=== PATIENT | female | born 1930 | race Caucasian/White ===

== ENCOUNTER 2017-08-13 00:33 | Inpatient (IN) | payer MEDICARE ==
[~2017-08-13] VITALS: Ht 154.9 cm; Wt 90.7 kg
[2017-08-13] VITALS (17 sets, daily range): BP systolic 78–132; BP diastolic 36–96
[~2017-08-13 00:33] MED LIST: ACETAMINOPHEN325 M1 PO; ALDACTONE25 MG PO; ALLOPURINOL100 MG PO; ALPRAZOLAM0.25 MG PO; ALTACE PO; ASPIRIN81 MG PO; ATORVASTATIN CA40 MG PO; BACLOFEN10 MG PO; BENADRYL25 M1 PO; BIOTIN2500 MCG PO; CELEBREX100 MG PO; DIGOXIN125 MCG PO; FLEXERIL10 MG PO; FUROSEMIDE40 MG PO; GABAPENTIN100 MG PO; HYDROCODON-ACE1 EAC9 PO; LABETALOL HCL100 MG PO; LIPITOR80 MG PO; LYRICA75 MG PO; MECLIZINE HCL12.5 MG PO; METOPROLOL TART50 MG PO; MINOCYCLINE HCL50 MG PO; MORPHINE SULFAT15 M1; MS CONTIN15 MG PO; NAMENDA10 MG; NORVASC10 MG PO; NYSTATIN-TRIAMC15 GM; OMEGA 3 1,0001 EACH PO; PRAMIPEXOLE D0.25 MG PO; PRILOSEC20 MG PO; PROAIR HFA INH8.5 GM INH; RAMIPRIL PO; RAMIPRIL10 MG PO; RISPERIDONE0.5 MG PO; ULTRAM 50MG50 MG PO; VITAMIN C500 MG PO; WARFARIN SODIU2.5 MG PO; WARFARIN SODIUM2 MG PO; WARFARIN SODIUM3 MG PO; ZOLOFT100 MG PO; [UNRECOGNIZED DRUG - OTHER]
[2017-08-13] MEDS ORDERED: SODIUM CHLORIDE 0.9% 500ML 500 ML IV STA (00:40)
[2017-08-13] MEDS ORDERED: PANTOPRAZOLE 40 MG 10ML VIAL IV STA (00:40)
[2017-08-13 01:26] LABS: BASOPHILS # (AUTO) 0.1 (0.0-0.1); BASOPHILS % 0.5 % (0.0-1.0); EOSINOPHILS # (AUTO) 0.2 (0.0-0.4); EOSINOPHILS % 1.8 % (0.0-6.0); HEMATOCRIT 31.5 % (34.2-44.1); HEMOGLOBIN 9.8 g/dL (12.0-16.0); LYMPHOCYTES # (AUTO) 1.1 (1.0-3.2); LYMPHOCYTES % 11.3 % (18.0-39.1); MEAN CORPUSCULAR HEMOGLOBIN 29.8 pg (28-32); MEAN CORPUSCULAR HGB CONC 31.1 g/dL (31-35); MEAN CORPUSCULAR VOLUME 95.7 fL (81-99); MONOCYTES # (AUTO) 0.6 (0.2-0.8); MONOCYTES % 6.3 % (4.4-11.3); NEUTROPHILS # (AUTO) 7.6 (2.1-6.9); NEUTROPHILS % 79.6 % (38.7-80.0); PLATELET COUNT 170 x10e3/uL (140-360); RED BLOOD COUNT 3.29 x10e6/uL (3.6-5.1)
[2017-08-13 01:31] LABS: BILIRUBIN,URINE 1+ (NEGATIVE); CLARITY,URINE HAZY (CLEAR); COLOR,URINE YELLOW (YELLOW); KETONES,URINE NEGATIVE (NEGATIVE); LEUKOCYTE ESTERASE ,URINE NEGATIVE (NEGATIVE); NITRITE,URINE NEGATIVE (NEGATIVE); URINE UROBILINOGEN 0.2 mg/dL (0.2 - 1)
[2017-08-13 01:37] LABS: INR 3.24; PROTHROMBIN TIME 34.8 seconds (11.9-14.5)
[2017-08-13 01:38] LABS: PARTIAL THROMBOPLASTIN TIME 65.5 seconds (23.8-35.5); PROTEIN,URINE DIPSTICK 1+ (NEGATIVE)
[2017-08-13 01:45] LABS: ALBUMIN 3.5 g/dL (3.5-5.0); ANION GAP 15.6 mmol/L (8-16); CALCIUM 9.1 mg/dL (8.4-10.2); CREATININE, SERUM 1.91 mg/dL (0.57-1.11); POTASSIUM 4.6 mmol/L (3.5-5.1)
[2017-08-13 01:55] LABS: CREATINE KINASE MB 1.2 ng/mL (0.00-5.00)
[2017-08-13 01:59] LABS: BACTERIA,URINE RARE /HPF; EPITHELIAL CELLS,URINE FEW /LPF; MUCUS,URINE MANY (RARE)
[2017-08-13] MEDS ORDERED: SODIUM CHLORIDE 0.9% 1000ML 1,000 ML IV SCH (02:00)
--- NOTE | 2017-08-13 02:17 | Diagnostic Imaging Report ---
SHOULDER LEFT COMPLETE HISTORY: Pain COMPARISON: None FINDINGS: Bones: No displaced fracture. Osseous alignment is within normal limits. Joints: Moderate degenerative changes of the left acromioclavicular and glenohumeral joints Soft tissues: Left-sided pacemaker IMPRESSION: No acute radiographic abnormality. Signed by: Dr. Gregory Man M.D. on 08/13/2017 2:13 AM
--- NOTE | 2017-08-13 02:25 | Diagnostic Imaging Report ---
History: Multiple falls Comparison studies:CT head and C spine 01/01/17 Technique: Axial images were obtained from the brain, face and cervical spine. Coronal and sagittal reconstructions obtained from the axial data. Intravenous contrast: None Findings: Head CT: Scalp/skull: No abnormalities. Extra-axial spaces: No masses. No fluid collections. Brain sulci: Mildly prominent. Ventricles: Mild compensatory dilatation. No hydrocephalus. Parenchyma: Scattered hypodensities in the supratentorial white matter are small vessel ischemic changes. No masses, hemorrhage, acute or chronic cortical vascular insults. Sellar/suprasellar region: No abnormalities. Craniocervical junction: Patent foramen magnum. No Chiari one malformation. Incidental findings: Atherosclerotic calcifications in the carotid siphons . Maxillofacial CT: Soft tissues: No abnormalities.. Bones: No acute fractures or bony abnormalities. Chronic depression of the left lamina papyracea . Orbits: No abnormalities. Paranasal sinuses: Clear. Cervical spine CT: Fractures: None. Soft tissues: No gross abnormalities. Atlantoaxial articulation: Intact. Degenerative changes Alignment: Normal lordosis. No scoliosis. Cervicomedullary junction: No abnormalities. The foramen magnum is patent. Vertebrae: No infection or neoplasm. Degenerative changes: Grossly unchanged multilevel degenerative changes. Incidental findings: Atherosclerotic calcifications of the carotid bulbs with retropharyngeal course of the IAC. Impression: Head CT: 1. No acute intracranial abnormality. Facial CT: 1. No acute facial abnormality. Cervical spine CT: 1. No acute cervical abnormalities. 2. Cannot exclude ligament, spinal cord and or vascular abnormalities on the basis of this examination. Signed by: DR Erik Velásquez M.D. on 08/13/2017 2:21 AM
[2017-08-13] MEDS ORDERED: SODIUM CHLORIDE 0.9% 250ML 250 ML IV ONE ×3 (03:45→16:00)
[2017-08-13] MEDS ORDERED: PHYTONADIONE 10 MG/ML AMP SC ONE (03:45)
--- NOTE | 2017-08-13 03:48 | Diagnostic Imaging Report ---
EXAM: CT Abdomen and Pelvis WITHOUT contrast INDICATION: Rectal bleeding COMPARISON: None. TECHNIQUE: Abdomen and pelvis were scanned utilizing a multidetector helical scanner from the lung base to the pubic symphysis without administration of IV contrast. Absence of intravenous contrast decreases sensitivity for detection of focal lesions and vascular pathology. Coronal and sagittal reformations were obtained. Routine protocol was performed. IV CONTRAST: None. ORAL CONTRAST: Water RADIATION DOSE: Total DLP: 722.49 mGy*cm Estimated effective dose: (DLP x 0.015 x size factor) mSv COMPLICATIONS: None FINDINGS: LINES and TUBES: ICD device is visualized in the left upper chest with distal leads within the right atrium, right ventricle and coronary sinus.. LOWER THORAX: Coronary artery disease with evidence of mitral valve annulus calcification HEPATOBILIARY: No focal hepatic lesions. No biliary ductal dilation. GALLBLADDER: No radio-opaque stones or sludge. No wall thickening. SPLEEN: No splenomegaly. PANCREAS: No focal masses or ductal dilatation. ADRENALS: No adrenal nodules KIDNEYS/URETERS: No hydronephrosis. Atrophic kidneys with suspected chronic medical renal disease. There is a 2.8 cm simple cyst in the upper pole of the right kidney. No stones. GI TRACT: Circumferential thickening of the rectum compatible with proctitis. There are diverticula within the colon without evidence of diverticulitis. Appendix is not clearly identified. There is however no fat stranding or adenopathy in the right lower quadrant to suggest appendicitis. PELVIC ORGANS/BLADDER: Peck catheter decompresses the urinary bladder. LYMPH NODES: No lymphadenopathy. VESSELS: There is severe atherosclerotic disease in the aorta and major arterial branches. PERITONEUM / RETROPERITONEUM: No free air or fluid. BONES: There are degenerative changes in the lumbar spine. SOFT TISSUES: Unremarkable. IMPRESSION: 1. No evidence of acute intra-abdominal or pelvic abnormality. 2. Diffuse atherosclerotic disease of the thoracoabdominal aorta and branches. 3. Diverticulosis without evidence of diverticulitis. 4. Thickening of the rectum compatible with proctitis Signed by: Dr. Gregory Man M.D. on 08/13/2017 3:44 AM
[2017-08-13] MEDS ORDERED: SODIUM CHLORIDE FLUSH 10 ML SYR INJ PRN (04:15)
[2017-08-13] MEDS ORDERED: PIPER-TAZ 3.375 GM 50 ML IV ONE (04:30)
[2017-08-13] MEDS: D5.45%NS/KCL 20MEQ 1,000 ML IV SCH ×3 (08:06→20:45)
[2017-08-13] MEDS ORDERED: ONDANSETRON HCL INJ 2 MG/ML VIAL IV PRN ×2 (10:45→11:15)
[2017-08-13] MEDS ORDERED: HYDROMORPHONE 2MG/ML INJ IV PRN (10:45)
[2017-08-13] MEDS: HYDROMORPHONE 2MG/ML INJ IV PRN ×2 (11:48→15:48)
[2017-08-13 14:45] LABS: HEMATOCRIT 23.3 % (34.2-44.1)
[2017-08-13 14:47] LABS: HEMOGLOBIN 7.6 g/dL (12.0-16.0)
--- NOTE | 2017-08-13 15:44 | Consultation ---
DATE OF CONSULTATION: August 13, 2017 CARDIOLOGY CONSULTATION REQUESTING PHYSICIAN: Dr. Marisela Trujillo. REASON FOR CONSULTATION: Atrial fibrillation and coronary artery disease. HISTORY OF PRESENT ILLNESS: This is an 87-year-old woman with a history of hypertension, dyslipidemia, coronary artery disease, chronic systolic heart failure status post AICD, chronic kidney disease, atrial fibrillation and dementia, who presented to the ER with complaints of bright red blood per rectum. The patient's daughter who is at bedside indicates the patient has been having diarrhea and weakness for the last week. The patient then called her daughter yesterday and reported bleeding from the rectum. She was, therefore, brought to the ER for further evaluation. In addition, the patient's daughter indicates the patient has been falling frequently recently. The patient otherwise denies chest pain, shortness of breath, palpitations, edema or orthopnea. REVIEW OF SYSTEMS: Negative except as per HPI. PAST MEDICAL HISTORY 1. Chronic systolic heart failure status post AICD. 2. Coronary artery disease. 3. Atrial fibrillation on anticoagulation. 4. Hypertension. 5. Hyperlipidemia. 6. Chronic kidney disease. 7. Dementia. 8. Depression. 9. History of frequent falls. PAST SURGICAL HISTORY 1. Cholecystectomy. 2. Hysterectomy. 3. Knee arthroscopy. SOCIAL HISTORY: Former tobacco use. Currently lives in a [facility]. FAMILY HISTORY: Noncontributory. ALLERGIES: PLEASE SEE EMR. MEDICATIONS: Please see medication reconciliation. PHYSICAL EXAMINATION VITAL SIGNS: Temperature 98.1 degrees, pulse 98, respiratory rate 18, blood pressure 98/69, oxygen saturation 99%. GENERAL: Elderly woman, well developed, well nourished, obese. No acute distress. HEENT: Normocephalic. Pupils equal. She has scattered ecchymoses noted as well as subconjunctival hemorrhage on the left. NECK: Supple. No thyromegaly or cervical lymphadenopathy, no carotid bruits. LUNGS: Clear to auscultation bilaterally. No wheezes or crackles. CARDIOVASCULAR: Normal rate, regular rhythm. No murmur. Normal S1 and S2. ABDOMEN: Soft, nontender. EXTREMITIES: No edema. NEURO: Nonfocal exam. SKIN: Scattered ecchymoses are noted. LABS: WBC 9.5, hemoglobin 9.8, hematocrit 31.5, platelets 170. Sodium 132, potassium 4.6, chloride 102, CO2 19, BUN 60, creatinine 1.91. BNP 799. Troponin 0.052. CT abdomen and pelvis: No evidence of acute intra-abdominal or pelvic abnormality. Diffuse atherosclerotic disease of the thoracoabdominal aorta and branches. Diverticulosis without evidence of diverticulitis. Thickening of rectum compatible with proctitis. Face CT: No acute cervical abnormalities. No acute intracranial abnormality. No acute facial abnormality. Cannot exclude intermediate spinal cord and/or vascular abnormalities on the basis of this examination. Shoulder x-ray: No acute radiographic abnormality. EKG: Atrial fibrillation with rapid ventricular response. Inferior infarct, age undetermined. Possible anterior infarct, age undetermined. IMPRESSION 1. Gastrointestinal bleeding. 2. Acute kidney injury on chronic kidney disease. 3. Supratherapeutic international normalized ratio. 4. Frequent falls. 5. Atrial fibrillation. 6. Coronary artery disease. 7. Chronic systolic heart failure status post automatic implantable cardioverter-defibrillator. 8. Dyslipidemia. 9. Hypertension. RECOMMENDATIONS: Given frequent falls and GI bleeding, stop anticoagulation. Continue current cardiac medications otherwise. Agree with trial of fluids given acute kidney injury. Will have to monitor volume status closely given her chronic systolic heart failure. Will ask for device interrogation to confirm no arrhythmias, explain her symptoms. Thank you for this consult. We will continue to follow. Job#: [id number] EHSAN
[2017-08-13 16:16] LABS: INR 1.53; PROTHROMBIN TIME 19.2 seconds (11.9-14.5)
[2017-08-13 16:17] LABS: PARTIAL THROMBOPLASTIN TIME 38.8 seconds (23.8-35.5)
--- NOTE | 2017-08-13 16:37 | Diagnostic Imaging Report ---
Tagged-RBC GI Bleed Study Clinical information: 87-year-old female with rectal bleeding; bright red bloody stool today. Discussion: The patient's own red blood cells were labeled with 26 mCi of technetium-99m pertechnetate using the in vitro method (UltraTag). Dynamic images of the abdomen were obtained through 60 minutes. Distribution of tracer activity appears physiologic throughout the abdomen. No abnormal accumulation of tracer is seen within the gastrointestinal lumen. Impression: No scan evidence of active gastrointestinal bleeding at this time. Signed by: Dr. Denice Alfaro M.D. on 08/13/2017 4:33 PM
[2017-08-13] MEDS ORDERED: PEG (High)/E-LYTE SOLN 4,000 ML BTL PO ONE (20:00)
[2017-08-13 20:57] LABS: HEMATOCRIT 21.2 % (34.2-44.1); HEMOGLOBIN 6.9 g/dL (12.0-16.0)
[2017-08-13] MEDS ORDERED: SODIUM CHLORIDE 0.9% 250ML 250 ML ONE (21:35)
[2017-08-14] VITALS (59 sets, daily range): BP systolic 71–144; BP diastolic 38–124
[2017-08-14] MEDS ORDERED: SODIUM CHLORIDE 0.9% 250ML 250 ML IV ONE (01:15)
[2017-08-14] MEDS: D5.45%NS/KCL 20MEQ 1,000 ML IV SCH ×4 (04:13→22:21)
[2017-08-14 07:53] LABS: BASOPHILS % 0.2 % (0.0-1.0); EOSINOPHILS # (AUTO) 0.1 (0.0-0.4); EOSINOPHILS % 0.7 % (0.0-6.0); HEMATOCRIT 24.8 % (34.2-44.1); HEMOGLOBIN 8.3 g/dL (12.0-16.0); LYMPHOCYTES # (AUTO) 0.7 (1.0-3.2); LYMPHOCYTES % 8.3 % (18.0-39.1); MEAN CORPUSCULAR HEMOGLOBIN 30.4 pg (28-32); MEAN CORPUSCULAR HGB CONC 33.5 g/dL (31-35); MEAN CORPUSCULAR VOLUME 90.8 fL (81-99); MONOCYTES # (AUTO) 0.7 (0.2-0.8); MONOCYTES % 8.3 % (4.4-11.3); NEUTROPHILS % 81.6 % (38.7-80.0); PLATELET COUNT 150 x10e3/uL (140-360); RED BLOOD COUNT 2.73 x10e6/uL (3.6-5.1); RED CELL DISTRIBUTION WIDTH 15.2 % (11.7-14.4)
[2017-08-14 08:02] LABS: INR 1.22
[2017-08-14 08:03] LABS: PARTIAL THROMBOPLASTIN TIME 32.9 seconds (23.8-35.5)
[2017-08-14] MEDS: PANTOPRAZOLE 40 MG 10ML VIAL IV SCH (09:56)
[2017-08-14] MEDS ORDERED: SODIUM CHLORIDE 0.9% 250ML 500 ML ONE (10:21)
--- NOTE | 2017-08-14 12:41 | Progress Note ---
DATE: August 14, 2017 CARDIOLOGY PROGRESS NOTE SUBJECTIVE: Patient denies chest pain or shortness of breath. She is scheduled for a colonoscopy today. OBJECTIVE VITAL SIGNS: Temperature 98.9 degrees, pulse 114, respiratory rate 18, blood pressure 122/62, oxygen saturation 100% on 2 liters nasal cannula. GENERAL: Elderly woman, obese, no acute distress. LUNGS: Clear to auscultation bilaterally. No wheezes or crackles. CARDIOVASCULAR: Normal rate, regular rhythm. No murmur. Normal S1 and S2. ABDOMEN: Soft, nontender. EXTREMITIES: No edema. SKIN: Scattered ecchymoses are noted with subconjunctival hemorrhage on the left. CARDIAC MEDICATIONS: None. LABS: WBC 8.59, hemoglobin 8.3, hematocrit 24.8, platelets 150. Sodium 132, potassium 4.6, chloride 102, CO2 19, BUN 60, creatinine 1.91. TELEMETRY: AFib with RVR. IMPRESSION 1. Gastrointestinal bleeding. 2. Acute anemia secondary to above. 3. Acute kidney injury on chronic kidney disease. 4. Supratherapeutic international normalized ratio. 5. Frequent falls. 6. Atrial fibrillation. 7. Coronary artery disease. 8. Chronic systolic heart failure status post automatic implantable cardioverter-defibrillator. 9. Dyslipidemia. 10. Hypertension. RECOMMENDATIONS: Given frequent falls and GI bleeding, stop anticoagulation. This was discussed with the patient and family, who are in agreement. Resume metoprolol given patient's tachycardia. Monitor volume status closely given her chronic systolic heart failure. Interrogation revealed mostly atrial fibrillation with rapid ventricular response, a few beats of nonsustained VT, otherwise normal function. Thank you for this consult. We will continue to follow. Job#: [id number] EV
[2017-08-14] MEDS ORDERED: LIDOCAINE HCL 2% LOCAL INJ 5 ML SDV VIAL INJ ONE (17:09)
[2017-08-14] MEDS ORDERED: PROPOFOL IV EMULSION 10 MG/ML 50 ML VIAL ONE (17:09)
[2017-08-14 18:54] LABS: HEMATOCRIT 20.4 % (34.2-44.1); HEMOGLOBIN 6.9 g/dL (12.0-16.0)
--- NOTE | 2017-08-14 19:58 | Operative Report ---
DATE OF PROCEDURE: August 14, 2017 REFERRING PHYSICIAN: Dr. Nolan Hwang PROCEDURES PERFORMED 1. Esophagogastroduodenoscopy with biopsies. 2. Colonoscopy with polypectomy. 3. Fulguration with size 10-English gold probe. 4. Hemoclipping. INDICATIONS FOR EGD: Anemia. INDICATIONS FOR COLONOSCOPY: Rectal bleeding. MEDICATION: Patient was done under MAC. Please see anesthesiologist's note. PROCEDURE: With the patient in the left lateral decubitus position, the flexible fiberoptic Olympus gastroscope was introduced into the esophagus under direct visualization without any difficulty. The scope was then advanced with ease under direct visualization into the esophagus, which appeared to be within normal limits. The scope was then advanced with ease into the stomach traversing a small hiatal hernia. Mucosa overlying the antrum and the body revealed some diffuse erythema and low-grade edema, and biopsies were obtained and sent to stain for H. pylori. The pylorus appeared to be of normal contour and shape. It was intubated with ease. The scope was advanced all the way to the 2nd portion of the duodenum. The scope was then withdrawn slowly. Mucosa overlying the proximal 2nd portion and the duodenal bulb appeared to be within normal limits. The scope was then withdrawn back into the stomach and retroflexed. Mucosa overlying the fundus appeared to be within normal limits. The cardia also appeared to be within normal limits. The scope was then straightened out. The stomach was decompressed. The scope was subsequently withdrawn. Patient tolerated the procedure well. IMPRESSION 1. Normal esophagus. 2. Small sliding hiatal hernia. 3. Gastritis, biopsied. Biopsies sent to stain for Helicobacter pylori. PLAN: Follow up histology. Initiate Protonix 40 mg 1 p.o. q.a.m. a.c. Patient was then turned around. After adequate lubrication of the anal canal, a flexible fiberoptic Olympus colonoscope was inserted into the rectum with ease and advanced all the way to the cecum. It was then withdrawn slowly. Mucosa overlying the cecum, ascending colon and transverse colon grossly were unremarkable. Some diverticular disease was noted in the descending colon and sigmoid colon. One polyp was snared from the sigmoid colon. A blood clot was noted in a diverticulum in the sigmoid colon. It could not be dislodge with the water jet. It was then fulgurated with a size 10-English gold probe and the diverticulum was hemoclipped. The rest of the descending and sigmoid grossly appeared to be within normal limits. The scope was retroflexed into the distal rectum and moderate size internal hemorrhoids were noted without active bleeding. The scope was then straightened out and it was subsequently withdrawn. Patient tolerated the procedure well. IMPRESSION 1. Diverticulosis. 2. Blood clot in a sigmoid diverticulum. Could not be dislodged with water jet. It was fulgurated with a size 10-English gold probe and the diverticulum was hemoclipped. 3. Moderate size internal hemorrhoids without active bleeding. PLAN: Follow up histology. Follow H and H. Initiate full liquid diet. A followup colonoscopy unless the patient rebleeds it not indicated. Job#: [id number] RI cc:RENEA HWANG DO
[2017-08-15] VITALS (92 sets, daily range): BP systolic 90–203; BP diastolic 48–165
[2017-08-15 00:09] LABS: HEMATOCRIT 19.1 % (34.2-44.1); HEMOGLOBIN 6.3 g/dL (12.0-16.0)
[2017-08-15] MEDS ORDERED: SODIUM CHLORIDE 0.9% 250ML 250 ML ONE (00:49)
[2017-08-15] MEDS: HYDROMORPHONE 2MG/ML INJ IV PRN ×2 (03:38→22:04)
[2017-08-15] MEDS: METOPROLOL TARTRATE INJ 1 MG/ML VIAL IV PRN ×3 (04:08→22:04)
[2017-08-15] MEDS: PANTOPRAZOLE 40 MG 10ML VIAL IV SCH (09:00)
[2017-08-15 09:02] LABS: HEMATOCRIT 26.5 % (34.2-44.1); HEMOGLOBIN 8.6 g/dL (12.0-16.0)
[2017-08-15] MEDS: D5.45%NS/KCL 20MEQ 1,000 ML IV SCH (12:30)
--- NOTE | 2017-08-15 15:18 | Progress Note ---
DATE: August 15, 2017 CARDIOLOGY PROGRESS NOTE SUBJECTIVE: Patient denies chest pain or shortness of breath. She underwent EGD and colonoscopy yesterday and was found to have a normal esophagus, a small sliding hiatal hernia, gastritis and diverticulosis. There was a blood clot found in the sigmoid diverticulum, for which she had fulguration and hemoclipping of the diverticulum. In addition, moderate-sized internal hemorrhoids without active bleeding were noted. OBJECTIVE VITAL SIGNS: Temperature 99.6 degrees, pulse 93, respiratory rate 18, blood pressure 119/75, oxygen saturation 98% on 3 liters nasal cannula. GENERAL: Elderly woman in no acute distress. LUNGS: Clear to auscultation bilaterally. No wheezes or crackles. CARDIOVASCULAR: Irregularly irregular, normal rate. No murmur. Normal S1 and S2. ABDOMEN: Soft, nontender. EXTREMITIES: No edema. SKIN: Scattered ecchymoses noted with subconjunctival hemorrhage on the left. CARDIAC MEDICATIONS: Metoprolol tartrate 5 mg IV q.6 h. p.r.n. LABS: Hemoglobin 8.6, hematocrit 26.5. TELEMETRY: Atrial fibrillation, rate controlled. IMPRESSION 1. Gastrointestinal bleeding secondary to diverticulosis. 2. Acute anemia secondary to above. 3. Acute kidney injury on chronic kidney disease. 4. Supratherapeutic international normalized ratio. 5. Frequent falls. 6. Atrial fibrillation. 7. Coronary artery disease. 8. Chronic systolic heart failure status post automatic implantable cardioverter-defibrillator. 9. Dyslipidemia. 10. Hypertension. RECOMMENDATIONS: Given frequent falls and GI bleeding, anticoagulation has been stopped. This was discussed with the patient and family, who are in agreement. Resume metoprolol now that patient has finished her procedure. Monitor volume status closely given chronic systolic heart failure. Continue patient on telemetry. Thank you for this consult. We will continue to follow. Job#: [id number] EV
[2017-08-15 15:46] LABS: HEMATOCRIT 27.3 % (34.2-44.1)
[2017-08-15] MEDS ORDERED: ALBUTEROL SULF 0.083% NEB SOLN 3 ML NEB ONE (16:58)
[2017-08-15] MEDS ORDERED: FUROSEMIDE INJ 10 MG/ML 4 ML VIAL ONE (16:59)
[2017-08-15] MEDS ORDERED: LABETALOL HCL IV 5 MG/ML 20ML MDV IV STA (17:20)
[2017-08-15] MEDS ORDERED: LABETALOL HCL 5MG/ML MDV 20 ML ONE (17:22)
[2017-08-15] MEDS ORDERED: ALBUTEROL SULF 0.083% NEB SOLN 3 ML NEB NEB SCH (19:00)
[2017-08-15] MEDS: IPRATROPIUM BROMIDE 0.02% 2.5 ML NEB NEB PRN (20:12)
[2017-08-15] MEDS: LEVALBUTEROL HCL SOLN NEBU 0.63 MG/3 ML NEB INH PRN (20:12)
[2017-08-16] VITALS (73 sets, daily range): BP systolic 109–174; BP diastolic 55–139
[2017-08-16 00:21] LABS: HEMATOCRIT 25.4 % (34.2-44.1); HEMOGLOBIN 8.2 g/dL (12.0-16.0)
[2017-08-16 05:35] LABS: BASOPHILS % 0.3 % (0.0-1.0); EOSINOPHILS # (AUTO) 0.1 (0.0-0.4); EOSINOPHILS % 0.6 % (0.0-6.0); HEMATOCRIT 26.9 % (34.2-44.1); HEMOGLOBIN 8.6 g/dL (12.0-16.0); LYMPHOCYTES # (AUTO) 0.8 (1.0-3.2); MEAN CORPUSCULAR HEMOGLOBIN 28.7 pg (28-32); MEAN CORPUSCULAR VOLUME 89.7 fL (81-99); MONOCYTES # (AUTO) 0.7 (0.2-0.8); MONOCYTES % 5.6 % (4.4-11.3); NEUTROPHILS % 85.6 % (38.7-80.0); PLATELET COUNT 140 x10e3/uL (140-360); RED CELL DISTRIBUTION WIDTH 19.5 % (11.7-14.4)
[2017-08-16 05:59] LABS: ANION GAP 11.8 mmol/L (8-16); CALCIUM 8.8 mg/dL (8.4-10.2); CREATININE, SERUM 1.13 mg/dL (0.57-1.11); POTASSIUM 3.8 mmol/L (3.5-5.1)
[2017-08-16] MEDS: HYDROMORPHONE 2MG/ML INJ IV PRN ×3 (06:33→19:10)
[2017-08-16] MEDS: METOPROLOL TARTRATE INJ 1 MG/ML VIAL IV PRN ×2 (06:34→10:05)
--- NOTE | 2017-08-16 06:50 | Diagnostic Imaging Report ---
EXAM: CHEST SINGLE (PORTABLE), AP Portable DATE: 08/16/2017 5:00 AM Time stamp on exam: 0618 hours INDICATION: COMPARISON: 09/23/2016 FINDINGS: LINES/TUBES: Stable position left approach single lead cardiac device. Right IJ central line catheter is now present in good position with tip overlying the SVC LUNGS: Central vascular congestion and interlobular septi thickening PLEURA: No effusions or pneumothorax. HEART AND MEDIASTINUM: Stable appearance of cardiomediastinal silhouette with mild enlargement. BONES AND SOFT TISSUES: No acute findings. IMPRESSION: No significant interval change. Mild edema secondary to cardiomegaly Signed by: Dr. Gregory Man M.D. on 08/16/2017 6:47 AM
[2017-08-16] MEDS: IPRATROPIUM BROMIDE 0.02% 2.5 ML NEB NEB PRN (07:15)
[2017-08-16] MEDS: LEVALBUTEROL HCL SOLN NEBU 0.63 MG/3 ML NEB INH PRN (07:15)
[2017-08-16] MEDS: PANTOPRAZOLE 40 MG 10ML VIAL IV SCH (09:00)
[2017-08-16] MEDS ORDERED: SPIRONOLACTONE 25 MG TAB ONE (11:39)
[2017-08-16] MEDS ORDERED: FUROSEMIDE 40 MG TAB ONE (11:40)
[2017-08-16] MEDS ORDERED: DIGOXIN INJ 0.25 MG/ML 2 ML AMP ONE (11:40)
[2017-08-16] MEDS ORDERED: METOPROLOL TARTRATE 50 MG TAB ONE (11:45)
[2017-08-16] MEDS: CEFEPIME HCL 1 GM VIAL IV SCH ×2 (12:00→23:41)
[2017-08-16] MEDS ORDERED: FUROSEMIDE INJ 10 MG/ML 4 ML VIAL IV ONE (12:00)
[2017-08-16 12:20] LABS: HEMOGLOBIN 8.6 g/dL (12.0-16.0)
[2017-08-16] MEDS ORDERED: SPIRONOLACTONE 25 MG TAB PO ONE (12:30)
--- NOTE | 2017-08-16 12:45 | Progress Note ---
DATE: August 16, 2017 CARDIOLOGY PROGRESS NOTE: SUBJECTIVE: Ms. Salinas feels better. She remains a little disoriented. OBJECTIVE VITAL SIGNS: Afebrile. Heart rate 136. Blood pressure 150/139. CARDIOVASCULAR: Irregularly irregular rhythm. Systolic murmur. LUNGS: Fine crackles bilaterally both lung bases. O2 sat is 96%. ABDOMEN: Is mildly distended and diffusely tender. Bowel sounds are present. Hemoglobin is 8.6. Serum creatinine is 1.13. CARDIOVASCULAR MEDICATIONS: Were reviewed. ASSESSMENT: 1. Atrial fibrillation with rapid ventricular response with recent major gastrointestinal bleeding. 2. Acute on chronic systolic heart failure. PLAN: All anticoagulation has been held. I will restart her oral medications to better control her AFib rate and rhythm. At this point, she is not a candidate for anticoagulation. I discussed the concept of left atrial appendage occlusion with the family. They will review data on the same. She is stable for transfer out of ICU once heart rate is better controlled. Job#: [id number] EHSAN
[2017-08-16] MEDS ORDERED: METOPROLOL TARTRATE 50 MG TAB PO ONE (13:00)
[2017-08-16] MEDS ORDERED: FUROSEMIDE 40 MG TAB PO ONE (13:00)
[2017-08-16] MEDS ORDERED: DIGOXIN INJ 0.25 MG/ML 2 ML AMP IV ONE (13:00)
[2017-08-16] MEDS: VANCOMYCIN 1GM/NS 250 ML 250 ML IV SCH (13:15)
[2017-08-16] MEDS: METOPROLOL TARTRATE 50 MG TAB PO SCH (18:10)
[2017-08-16] MEDS: PRAMIPEXOLE DIHYDROCHLORIDE 0.25 MG TAB PO SCH ×2 (18:10→21:20)
[2017-08-16] MEDS ORDERED: PRAMIPEXOLE DIHYDROCHLORIDE 0.25 MG TAB ONE (18:15)
[2017-08-16 18:51] LABS: HEMOGLOBIN 8.4 g/dL (12.0-16.0)
[2017-08-17] VITALS (29 sets, daily range): BP systolic 126–177; BP diastolic 68–149
[2017-08-17] MEDS: HYDROMORPHONE 2MG/ML INJ IV PRN ×2 (00:43→19:32)
[2017-08-17 05:40] LABS: BASOPHILS % 0.3 % (0.0-1.0); EOSINOPHILS # (AUTO) 0.3 (0.0-0.4); EOSINOPHILS % 2.8 % (0.0-6.0); LYMPHOCYTES # (AUTO) 0.6 (1.0-3.2); LYMPHOCYTES % 5.7 % (18.0-39.1); MEAN CORPUSCULAR HEMOGLOBIN 29.2 pg (28-32); MEAN CORPUSCULAR VOLUME 91.2 fL (81-99); MONOCYTES # (AUTO) 0.7 (0.2-0.8); MONOCYTES % 5.9 % (4.4-11.3); NEUTROPHILS # (AUTO) 9.4 (2.1-6.9); NEUTROPHILS % 83.3 % (38.7-80.0); PLATELET COUNT 130 x10e3/uL (140-360); RED BLOOD COUNT 2.74 x10e6/uL (3.6-5.1); RED CELL DISTRIBUTION WIDTH 18.6 % (11.7-14.4)
[2017-08-17 05:51] LABS: ALBUMIN/GLOBULIN RATIO 1.1 (0.8-2.0); ANION GAP 10.4 mmol/L (8-16); CALCIUM 8.6 mg/dL (8.4-10.2); CREATININE, SERUM 1.15 mg/dL (0.57-1.11); POTASSIUM 3.4 mmol/L (3.5-5.1)
[2017-08-17] MEDS: LEVALBUTEROL HCL SOLN NEBU 0.63 MG/3 ML NEB INH PRN ×3 (07:57→17:35)
[2017-08-17] MEDS: IPRATROPIUM BROMIDE 0.02% 2.5 ML NEB NEB PRN ×3 (07:57→17:35)
[2017-08-17 08:39] LABS: PROTHROMBIN TIME 13.7 seconds (11.9-14.5)
[2017-08-17] MEDS: FUROSEMIDE 40 MG TAB PO SCH (08:50)
[2017-08-17] MEDS: DIGOXIN 0.125 MG TAB PO SCH (08:50)
[2017-08-17] MEDS: SPIRONOLACTONE 25 MG TAB PO SCH (08:50)
[2017-08-17] MEDS: CHLORDIAZEPOXIDE/CLIDINIUM 1 CAP PO SCH ×3 (08:50→16:27)
[2017-08-17] MEDS: METOPROLOL TARTRATE 50 MG TAB PO SCH ×2 (08:51→17:00)
[2017-08-17] MEDS: PRAMIPEXOLE DIHYDROCHLORIDE 0.25 MG TAB PO SCH ×3 (08:51→21:05)
[2017-08-17] MEDS: PANTOPRAZOLE 40 MG 10ML VIAL IV SCH ×2 (09:00→20:30)
[2017-08-17] MEDS: SENNA-S TABLET PO SCH ×2 (11:00→17:00)
[2017-08-17] MEDS ORDERED: BISACODYL 10 MG SUPP PR ONE (11:30)
[2017-08-17] MEDS ORDERED: POTASSIUM CHLORIDE 20 MEQ TAB CR PO ONE (11:30)
[2017-08-17] MEDS ORDERED: ACETAMINOPHEN 325 MG TAB ONE (11:46)
[2017-08-17] MEDS: ACETAMINOPHEN 325 MG TAB PO PRN (11:51)
[2017-08-17] MEDS: CEFEPIME HCL 1 GM VIAL IV SCH (11:51)
[2017-08-17] MEDS: VANCOMYCIN 1GM/NS 250 ML 250 ML IV SCH (13:00)
--- NOTE | 2017-08-17 15:48 | Diagnostic Imaging Report ---
EXAM: CT Abdomen and Pelvis WITHOUT contrast INDICATION: \S\ACUTE ABDOMEN \S\[id number] \S\1345 \S\Y COMPARISON: CT dated 08/13/2019 TECHNIQUE: Abdomen and pelvis were scanned utilizing a multidetector helical scanner from the lung base to the pubic symphysis without administration of IV contrast. Absence of intravenous contrast decreases sensitivity for detection of focal lesions and vascular pathology. Coronal and sagittal reformations were obtained. Routine protocol was performed. IV CONTRAST: None ORAL CONTRAST: Water COMPLICATIONS: None RADIATION DOSE: Total DLP: 763.13 mGy*cm Estimated effective dose: (DLP x 0.015 x size factor) mSv CTDIvol has been reviewed. It is below the limits set by the Radiation Protocol Committee (RPC). FINDINGS: LINES and TUBES: Distal lead of cardiac pacemaker is visualized. LOWER THORAX: Cardiomegaly. Severe atherosclerotic calcification of coronary arteries and mitral valve. Small bilateral pleural effusions. Perihilar opacities. HEPATOBILIARY: Unenhanced liver is unremarkable. No biliary ductal dilation. GALLBLADDER: Not visualized. SPLEEN: No splenomegaly. PANCREAS: Atrophic. No focal masses or ductal dilatation. ADRENALS: No adrenal nodules. Mild thickening, likely hyperplasia. KIDNEYS/URETERS: No hydronephrosis. Unchanged right superior pole cyst. There is also a smaller left superior pole cyst. No stones. GI TRACT: No abnormal distention, wall thickening, or evidence of bowel obstruction. Colonic diverticulosis without evidence of diverticulitis. Appendix is not visualized. PELVIC ORGANS/BLADDER: Bladder is compressed by a Peck catheter in place, containing a pocket of air. LYMPH NODES: No lymphadenopathy. VESSELS: Tortuous abdominal aorta with moderate to severe atherosclerotic disease. The proximal/suprarenal abdominal aorta is ectatic up to 2.9 cm. PERITONEUM / RETROPERITONEUM: No free air or fluid. BONES: Severe degenerative changes of spine. There is lower lumbar spine facet arthropathy, especially at L5-S1. Grade 1 anterolisthesis of L5 in relation to S1. SOFT TISSUES: Unremarkable. IMPRESSION: Limited study without intravenous contrast. No definite evidence of acute inflammatory process in the abdomen/pelvis. Partially imaged cardiomegaly, severe atherosclerotic calcification of coronary arteries, and small bilateral pleural effusions. There are also bilateral perihilar opacities. Underlying pneumonia cannot be excluded. Colonic diverticulosis without evidence of diverticulitis. Signed by: Dr. Norris Dietz MD on 08/17/2017 3:44 PM
--- NOTE | 2017-08-17 17:25 | Progress Note ---
DATE: August 17, 2017 CARDIOLOGY PROGRESS NOTE: SUBJECTIVE: Ms. Salinas has considerable abdominal pain. OBJECTIVE VITAL SIGNS: She has a temperature of 102 degrees. Heart rate is 87. Blood pressure 154/79. O2 sat is 91% on 3 liters nasal cannula. CARDIOVASCULAR: Irregularly irregular rhythm. Systolic murmur. LUNGS: Clear to auscultation bilaterally. ABDOMEN: Is distended, diffusely tender. Bowel sounds are hypoactive. Hemoglobin today is 8. Serum creatinine is 1.15. ASSESSMENT: Atrial fibrillation with recent major gastrointestinal bleeding. PLAN: Continue current oral medications. Consider imaging of the abdomen for ongoing abdominal pain and fever. Job#: [id number] EHSAN
[2017-08-17] MEDS ORDERED: SERTRALINE HCL 50 MG TAB PO SCH (21:00)
[2017-08-18] VITALS (16 sets, daily range): BP systolic 116–149; BP diastolic 59–98
[2017-08-18] MEDS: HYDROMORPHONE 2MG/ML INJ IV PRN ×2 (00:01→13:54)
[2017-08-18] MEDS: CEFEPIME HCL 1 GM VIAL IV SCH ×2 (00:05→12:44)
[2017-08-18] MEDS ORDERED: ALPRAZOLAM 0.5 MG TAB PO ONE (01:00)
[2017-08-18 05:42] LABS: BASOPHILS % 0.3 % (0.0-1.0); EOSINOPHILS # (AUTO) 0.4 (0.0-0.4); EOSINOPHILS % 3.3 % (0.0-6.0); HEMATOCRIT 27.7 % (34.2-44.1); HEMOGLOBIN 8.8 g/dL (12.0-16.0); LYMPHOCYTES # (AUTO) 0.7 (1.0-3.2); LYMPHOCYTES % 6.2 % (18.0-39.1); MEAN CORPUSCULAR HEMOGLOBIN 28.9 pg (28-32); MEAN CORPUSCULAR HGB CONC 31.8 g/dL (31-35); MEAN CORPUSCULAR VOLUME 91.1 fL (81-99); MONOCYTES # (AUTO) 0.6 (0.2-0.8); MONOCYTES % 5.4 % (4.4-11.3); NEUTROPHILS # (AUTO) 9.5 (2.1-6.9); NEUTROPHILS % 83.3 % (38.7-80.0); PLATELET COUNT 124 x10e3/uL (140-360); RED BLOOD COUNT 3.04 x10e6/uL (3.6-5.1); RED CELL DISTRIBUTION WIDTH 17.7 % (11.7-14.4)
[2017-08-18 06:05] LABS: ANION GAP 11.6 mmol/L (8-16); CALCIUM 8.9 mg/dL (8.4-10.2); CREATININE, SERUM 1.05 mg/dL (0.57-1.11); POTASSIUM 3.6 mmol/L (3.5-5.1)
--- NOTE | 2017-08-18 07:03 | Diagnostic Imaging Report ---
EXAMINATION: CHEST SINGLE (PORTABLE) INDICATION: Congestion. COMPARISON: 08/16/2017 FINDINGS: TUBES and LINES: AICD is intact. Right IJ central line catheter is stable LUNGS: Lungs are not well inflated. There are worsening bibasilar atelectasis. There is worsening perihilar interstital opacities, consistent with interstitial edema. PLEURA: No pleural effusion or pneumothorax. HEART AND MEDIASTINUM: Cardiac size is moderately enlarged. There are atherosclerotic calcifications within the aorta. BONES AND SOFT TISSUES: No acute osseous lesion. Soft tissues are unremarkable. UPPER ABDOMEN: No free air under the diaphragm. IMPRESSION: Worsening cardiogenic pulmonary edema. Signed by: Dr. Gregory Man M.D. on 08/18/2017 6:56 AM
[2017-08-18] MEDS: ALPRAZOLAM 0.5 MG TAB PO PRN ×2 (08:08→20:05)
[2017-08-18] MEDS: CHLORDIAZEPOXIDE/CLIDINIUM 1 CAP PO SCH ×3 (08:20→16:30)
[2017-08-18] MEDS: SPIRONOLACTONE 25 MG TAB PO SCH (08:20)
[2017-08-18] MEDS: DIGOXIN 0.125 MG TAB PO SCH (08:20)
[2017-08-18] MEDS: PANTOPRAZOLE 40 MG 10ML VIAL IV SCH (08:20)
[2017-08-18] MEDS: FUROSEMIDE 40 MG TAB PO SCH (08:20)
[2017-08-18] MEDS: METOPROLOL TARTRATE 50 MG TAB PO SCH ×3 (08:21→17:00)
[2017-08-18] MEDS: SENNA-S TABLET PO SCH ×2 (08:21→17:00)
[2017-08-18] MEDS: PRAMIPEXOLE DIHYDROCHLORIDE 0.25 MG TAB PO SCH ×2 (08:21→15:00)
[2017-08-18] MEDS ORDERED: ASPIRIN 81 MG ENTERIC COATED PO SCH (09:00)
[2017-08-18] MEDS ORDERED: ASPIRIN 81 MG ENTERIC COATED PO ONE (09:00)
[2017-08-18] MEDS ORDERED: RISPERIDONE 0.5 MG TAB PO SCH (09:00)
[2017-08-18] MEDS ORDERED: LIDOCAINE 5% PATCH TP SCH (09:00)
--- NOTE | 2017-08-18 09:22 | Progress Note ---
DATE: August 18, 2017 CARDIOLOGY PROGRESS NOTE SUBJECTIVE: Ms. Salinas is seen. CT scan was reviewed. She has no acute pathology. OBJECTIVE VITALS: Temperature 99.2. Heart rate 102. Blood pressure 143/77. O2 sat is 93%. CARDIOVASCULAR: Irregularly irregular rate and rhythm. Tachycardic. LUNGS: Decreased breath sounds. ABDOMEN: Distended. LABS: Hemoglobin is 8.8. Serum creatinine 1.05. CURRENT MEDICATIONS: Reviewed. TELEMETRY: Atrial fibrillation. ASSESSMENT 1. Atrial fibrillation. 2. Recent massive gastrointestinal bleeding. RECOMMENDATIONS: Diuresis with spironolactone and furosemide. Rate control with beta barbie and digoxin. However, beta barbie dose will be increased to better control her atrial fibrillation rate. No anticoagulation besides an aspirin every day. Further evaluation as an outpatient. Echocardiogram reveals ejection fraction of 45%. Job#: [id number]
[2017-08-18] MEDS: VANCOMYCIN 1GM/NS 250 ML 250 ML IV SCH (12:44)
[2017-08-18] MEDS: ACETAMINOPHEN 325 MG TAB PO PRN (20:05)
== END 2017-08-18 21:34 | DRG 329 ==
LOC: ER 00:33 → ERHOLD 04:38 → ICU 19:35 → MED/SURG2 08-18 13:47
PROC: 02HV33Z Insertion of Infusion Device into Superior Vena Cava, Percutaneous Approach (ICD-10-PCS; 2017-08-13)
PROC: 30250K1 (ICD-10-PCS; 2017-08-14)
PROC: 0DL Gastrointestinal System, Occlusion (ICD-10-PCS; 2017-08-14)
PROC: 0DB78ZX Excision of Stomach, Pylorus, Via Natural or Artificial Opening Endoscopic, Diagnostic (ICD-10-PCS; 2017-08-14)
PROC: 0DB68ZX Excision of Stomach, Via Natural or Artificial Opening Endoscopic, Diagnostic (ICD-10-PCS; 2017-08-14)
PROC: 0DBN8ZX Excision of Sigmoid Colon, Via Natural or Artificial Opening Endoscopic, Diagnostic (ICD-10-PCS; 2017-08-14)
PROC: 30250L1 (ICD-10-PCS; principal; 2017-08-14 12:30)
PROC: 30250N1 (ICD-10-PCS; 2017-08-14 12:30)
PROC: 30250R1 (ICD-10-PCS; 2017-08-14 12:30)
DX: K57.31 Diverticulosis of large intestine without perforation or abscess with bleeding (principal); I50.23 Acute on chronic systolic (congestive) heart failure; A41.9 Sepsis, unspecified organism; N17.9 Acute kidney failure, unspecified; D62 Acute posthemorrhagic anemia; J44.0 Chronic obstructive pulmonary disease with (acute) lower respiratory infection; I48.91 Unspecified atrial fibrillation; I12.9 Hypertensive chronic kidney disease with stage 1 through stage 4 chronic kidney disease, or unspecified chronic kidney disease; N18.9 Chronic kidney disease, unspecified; E78.5 Hyperlipidemia, unspecified; I25.10 Atherosclerotic heart disease of native coronary artery without angina pectoris; F32.9 Major depressive disorder, single episode, unspecified; F03.90 Unspecified dementia, unspecified severity, without behavioral disturbance, psychotic disturbance, mood disturbance, and anxiety; Z79.01 Long term (current) use of anticoagulants; Z87.891 Personal history of nicotine dependence; Z95.810 Presence of automatic (implantable) cardiac defibrillator; Z91.81 History of falling; F41.9 Anxiety disorder, unspecified; Z66 Do not resuscitate
CPT/HCPCS: 36415; 36430; 43239; 44391; 45385; 70450; 70486; 71045; 72125; 74176; 78278; 80048; 80053; 81001; 82550; 82553; 82948; 83690; 83880; 84484; 85014; 85018; 85025; 85610; 85730; 86850; 86900; 86920; 87040; 87071; 87086; 87205; 88305; 88312; 93005; 93306; 94640; 94660; 96361; 96365; 96376; 99284; A9512; J0692; J1160; J1940; J2001; J2405; J2543; J3370; J3430; J7040; J7050; P9016; P9017; P9034

== ENCOUNTER 2017-09-26 10:31 | Inpatient (IN) | payer MEDICARE ==
[~2017-09-26] VITALS: Ht 154.9 cm; Wt 101.4 kg
--- OUTSIDE RECORDS SUMMARY | 2017-09-26 10:34 | XMS REPORT ---
Author Author [facility] Address Unknown Phone Unavailable Care Team Providers Care Sales Support Advisor Name Role Phone SAURABH RIVERO Unavailable Unavailable Problems This patient has no known problems. Allergies, Adverse Reactions, Alerts This patient has no known allergies or adverse reactions. Medications This patient has no known medications. Results Test Description Test Time Test Comments Text Results Atomic Results Result Comments CHEST SINGLE (PORTABLE) [place] [address] Patient Name: LISA CHANDLER MR #: [id number] : 1930 Age/Sex: 87/F Req #: [id number] Adm Physician: SAURABH RIVERO MD Ordered by: CAROL MICHAEL MD Report #: [id number] Location: ICU Room/Bed: ICU [facility] access hospital _ Procedure: [id number] DX/CHEST SINGLE (PORTABLE) Exam Date : 08/18/17 Exam Time: 0605 REPORT STATUS: Signed EXAMINATION: CHEST SINGLE (PORTABLE) INDICATION: Congestion. COMPARISON: 08/16/2017 FINDINGS: TUBES and LINES: AICD is intact. Right IJ central line catheter is stable LUNGS: Lungs are not well inflated. There are worsening bibasilar atelectasis. There is worsening perihilar interstital opacities, consistent with interstitial edema. PLEURA: No pleural effusion or pneumothorax. HEART AND MEDIASTINUM: Cardiac size is moderately enlarged. There are atherosclerotic calcifications within the aorta. BONES AND SOFT TISSUES: No acute osseous lesion. Soft tissues are unremarkable. UPPER ABDOMEN: No free air under the diaphragm. IMPRESSION: Worsening cardiogenic pulmonary edema. Signed by: Dr. Gregory Man M.D. on 08/18/2017 6:56 AM Dictated By : GREGORY ZAVALA MD 5 Transcribed By: MAYDA on 08/18/17655 COPY TO: CAROL MICHAEL MD CT ABDOMEN/PELVIS WO [place] [address] Patient Name: LISA CHANDLER MR #: [id number] : 1930 Age/Sex: 87/F Req #: [id number] Adm Physician: SAURABH RIVERO MD Ordered by: CAROL MICHAEL MD Report #: [id number] Location: ICU Room/Bed: ICU Critical access hospital _ Procedure: [id number] CT/CT ABDOMEN/PELVIS WO Exam Date: 08/17/17 Exam Time: 1345 REPORT STATUS: Signed EXAM: CT Abdomen and Pelvis WITHOUT contrast INDICATION: COMPARISON: CT dated 08/13/2019 TECHNIQUE: Abdomen and pelvis were scanned utilizing a multidetector helical scanner from the lung base to the pubic symphysis without administration of IV contrast. Absence of intravenous contrast decreases sensitivity for detection of focal lesions and vascular pathology. Coronal and sagittal reformations were obtained. Routine protocol was performed. IV CONTRAST: None ORAL CONTRAST: Water COMPLICATIONS: None RADIATION DOSE: Total DLP: 763.13 mGy*cm Estimated effective dose: (DLP x 0.015 x size factor) mSv CTDIvol has been reviewed. It is below the limits set by the Radiation Protocol Committee (RPC). FINDINGS: LINES and TUBES: Distal lead of cardiac pacemaker is visualized. LOWER THORAX: Cardiomegaly. Severe atherosclerotic calcification of coronary arteries and mitral valve. Small bilateral pleural effusions. Perihilar opacities. HEPATOBILIARY: Unenhanced liver is unremarkable. No biliary ductal dilation. GALLBLADDER: Not visualized. SPLEEN: No splenomegaly. PANCREAS: Atrophic. No focal masses or ductal dilatation. ADRENALS: No adrenal nodules. Mild thickening, likely hyperplasia. KIDNEYS/URETERS: No hydronephrosis. Unchanged right superior pole cyst. There is also a smaller left superior pole cyst. No stones. GI TRACT: No abnormal distention, wall thickening, or evidence of bowel obstruction. Colonic diverticulosis without evidence of diverticulitis. Appendix is not visualized. PELVIC ORGANS/BLADDER: Bladder is compressed by a Peck catheter in place, containing a pocket of air. LYMPH NODES: No lymphadenopathy. VESSELS: Tortuous abdominal aorta with moderate to severe atherosclerotic disease. The proximal/suprarenal abdominal aorta is ectatic up to 2.9 cm. PERITONEUM / RETROPERITONEUM: No free air or fluid. BONES: Severe degenerative changes of spine. There is lower lumbar spine facet arthropathy, especially at L5-S1. Grade 1 anterolisthesis of L5 in relation to S1. SOFT TISSUES: Unremarkable. IMPRESSION: Limited study without intravenous contrast. No definite evidence of acute inflammatory process in the abdomen/ pelvis. Partially imaged cardiomegaly, severe atherosclerotic calcification of coronary arteries, and small bilateral pleural effusions. There are also bilateral perihilar opacities. Underlying pneumonia cannot be excluded. Colonic diverticulosis without evidence of diverticulitis. Signed by: Dr. Norris Nath MD on 08/17/2017 3:44 PM Dictated By: NORRIS NATH MD [id number] Transcribed By: MAYDA on 08/17/17 1026 COPY TO: CAROL MICHAEL MD CHEST [facility] (PORTABLE) [place] [address] Patient Name: LISA CHANDLER MR #: [id number] : 1930 Age/Sex: 87/F Req #: [id number] Adm Physician: SAURABH RIVERO MD Ordered by: CAROL MICHAEL MD Report #: [id number] Location: ICU Room/Bed: ICU 192 _ Procedure: [id number] DX/CHEST SINGLE (PORTABLE) Exam Date : 08/16/17 Exam Time: 619 REPORT STATUS: Signed EXAM: CHEST SINGLE (PORTABLE), AP Portable DATE: 08/16/2017 5:00 AM Time stamp on exam: 0618 hours INDICATION: COMPARISON: 09/23/2016 FINDINGS: LINES/TUBES: Stable position left approach single lead cardiac device. Right IJ central line catheter is now present in good position with tip overlying the SVC LUNGS: Central vascular congestion and interlobular septi thickening PLEURA: No effusions or pneumothorax. HEART AND MEDIASTINUM: Stable appearance of cardiomediastinal silhouette with mild enlargement. BONES AND SOFT TISSUES: No acute findings. IMPRESSION: No significant interval change. Mild edema secondary to cardiomegaly Signed by: Dr. Gregory Man M.D. on 08/16/2017 6:47 AM Dictated By: GREGORY ZAVALA MD 6 Transcribed By: MAYDA on 08/16/17646 COPY TO: CAROL MICHAEL MD G I BLEED [place] [address] Patient Name: LISA CHANDLER MR # : [id number] : 1930 Age/Sex: 87/F Req #: [id number] Adm Physician: SAURABH RIVERO MD Ordered by: SHASHANK JIMENEZ MD Report #: [id number] [facility] _ Procedure: [id number] NM/G I BLEED Exam Date: 08/13/17 Exam Time: 1515 REPORT STATUS: Signed Tagged-RBC GI Bleed Study Clinical information: 87-year-old female with rectal bleeding; bright red bloody stool today. Discussion: The patient's own red blood cells were labeled with 26 mCi of technetium-99m pertechnetate using the in vitro method (UltraTag). Dynamic images of the abdomen were obtained through 60 minutes. Distribution of tracer activity appears physiologic throughout the abdomen. No abnormal accumulation of tracer is seen within the gastrointestinal lumen. Impression: No scan evidence of active gastrointestinal bleeding at this time. Signed by: Dr. Tiny Alfaro M.D. on 08/13/2017 4:33 PM Dictated By: TINY ALFARO MD 163 Transcribed By: MAYDA on 08/13/171632 COPY TO: SHASHANK JIMENEZ MD [place] [address] Patient Name: LISA CHANDLER MR #: [id number] : 1930 Age/Sex: 87/F Req #: [id number] Adm Physician: Ordered by: SHASHANK JIMENEZ MD Report #: [id number] Location: ER Room/Bed: Procedure: [id number] DX/SHOULDER LEFT COMPLETE Exam Date: Exam Time: REPORT STATUS: Signed SHOULDER LEFT COMPLETE HISTORY: Pain COMPARISON: None FINDINGS: Bones: No displaced fracture. Osseous alignment is within normal limits. Joints: Moderate degenerative changes of the left acromioclavicular and glenohumeral joints Soft tissues: Left-sided pacemaker IMPRESSION: No acute radiographic abnormality. Signed by: Dr. Gregoyr Man M.D. on 2017 2:13 AM Dictated By: GREGORY ZAVALA MD 2 Transcribed By: MAYDA on 212 COPY TO: SHASHANK JIMENEZ MD CT CERVICAL SPINE WO [place] [address] Patient Name: LISA CHANDLER MR #: [id number] : 1930 Age/Sex: 87/F Req #: [id number] Adm Physician: Ordered by: TRACY HERNÁNDEZ [employer] Report #: [id number] Location: ER Room/Bed: Procedure: [id number] CT/CT CERVICAL SPINE WO Exam Date: 08/13/17 Exam Time: 129 REPORT STATUS: Signed History: Multiple falls Comparison studies:CT head and C spine 01/01/17 Technique: Axial images were obtained from the brain, face and cervical spine. Coronal and sagittal reconstructions obtained from the axial data. Intravenous contrast: None Findings: Head CT: Scalp/skull: No abnormalities. Extra-axial spaces: No masses. No fluid collections. Brain sulci: Mildly prominent. Ventricles: Mild compensatory dilatation. No hydrocephalus. Parenchyma: Scattered hypodensities in the supratentorial white matter are small vessel ischemic changes. No masses, hemorrhage, acute or chronic cortical vascular insults. Sellar/suprasellar region: No abnormalities. Craniocervical junction: Patent foramen magnum. No Chiari one malformation. Incidental findings: Atherosclerotic calcifications in the carotid siphons . Maxillofacial CT: Soft tissues: No abnormalities.. Bones: No acute fractures or bony abnormalities. Chronic depression of the left lamina papyracea . Orbits: No abnormalities. Paranasal sinuses: Clear. Cervical spine CT: Fractures: None. Soft tissues: No gross abnormalities. Atlantoaxial articulation: Intact. Degenerative changes Alignment: Normal lordosis. No scoliosis. Cervicomedullary junction : No abnormalities. The foramen magnum is patent. Vertebrae: No infection or neoplasm. Degenerative changes: Grossly unchanged multilevel degenerative changes. Incidental findings: Atherosclerotic calcifications of the carotid bulbs with retropharyngeal course of the IAC. Impression: Head CT: 1. No acute intracranial abnormality. Facial CT: 1. No acute facial abnormality. Cervical spine CT: 1. No acute cervical abnormalities. 2. Cannot exclude ligament, spinal cord and or vascular abnormalities on the basis of this examination. Signed by: DR Erik Velásquez M.D. on 08/13/2017 2:21 AM Dictated By: ERIK VELÁSQUEZ MD 0 Transcribed By: MAYDA on 08/13/17220 COPY TO: TRACY HERNÁNDEZ [employer] CT [facility] [place] [address] Patient Name: LISA CHANDLER MR #: [id number] : 1930 Age/Sex: 87/F Req #: [id number] Adm Physician: Ordered by: TRACY HERNÁNDEZ [employer] Report #: [id number] Location: ER Room/Bed: Procedure: [id number] CT/CT [facility]/CORE[facility] WO Exam Date: 08/13/17 Exam Time: 0130 REPORT STATUS: Signed History: Multiple falls Comparison studies:CT head and C spine 01/01/17 Technique: Axial images were obtained from the brain, face and cervical spine. Coronal and sagittal reconstructions obtained from the axial data. Intravenous contrast: None Findings: Head CT: Scalp/skull: No abnormalities. Extra-axial spaces: No masses. No fluid collections. Brain sulci: Mildly prominent. Ventricles: Mild compensatory dilatation. No hydrocephalus. Parenchyma: Scattered hypodensities in the supratentorial white matter are small vessel ischemic changes. No masses, hemorrhage, acute or chronic cortical vascular insults. Sellar/ suprasellar region: No abnormalities. Craniocervical junction: Patent foramen magnum. No Chiari one malformation. Incidental findings: Atherosclerotic calcifications in the carotid siphons . Maxillofacial CT: Soft tissues: No abnormalities.. Bones: No acute fractures or bony abnormalities. Chronic depression of the left lamina papyracea . Orbits: No abnormalities. Paranasal sinuses: Clear. Cervical spine CT: Fractures: None. Soft tissues: No gross abnormalities. Atlantoaxial articulation: Intact. Degenerative changes Alignment: Normal lordosis. No scoliosis. Cervicomedullary junction: No abnormalities. The foramen magnum is patent. Vertebrae: No infection or neoplasm. Degenerative changes: Grossly unchanged multilevel degenerative changes. Incidental findings: Atherosclerotic calcifications of the carotid bulbs with retropharyngeal course of the IAC. Impression: Head CT: 1. No acute intracranial abnormality. Facial CT: 1. No acute facial abnormality. Cervical spine CT: 1. No acute cervical abnormalities. 2. Cannot exclude ligament, spinal cord and or vascular abnormalities on the basis of this examination. Signed by: DR Erik Velásquez M.D. on 08/13 2:21 AM Dictated By: ERIK PERSADU MD 0 Transcribed By: MAYDA on 08/13/17220 COPY TO: TRACY HERNÁNDEZ [employer]ER CT BRAIN WO [place] [id number] [place] [address] Patient Name: LISA CHANDLER MR #: [id number] : 1930 Age/Sex: 87/F Req #: [id number] Adm Physician: Ordered by: TRACY HERNÁNDEZ [employer] Report #: [id number] Location: ER Room/Bed: Procedure: [id number] CT/CT BRAIN WO Exam Date: 08/13/17 Exam Time: 0130 REPORT STATUS: Signed History: Multiple falls Comparison studies :CT head and C spine 01/01/17 Technique: Axial images were obtained from the brain, face and cervical spine. Coronal and sagittal reconstructions obtained from the axial data. Intravenous contrast: None Findings: Head CT: Scalp/skull: No abnormalities. Extra-axial spaces: No masses. No fluid collections. Brain sulci: Mildly prominent. Ventricles : Mild compensatory dilatation. No hydrocephalus. Parenchyma: Scattered hypodensities in the supratentorial white matter are small vessel ischemic changes. No masses, hemorrhage, acute or chronic cortical vascular insults. Sellar/suprasellar region: No abnormalities. Craniocervical junction: Patent foramen magnum. No Chiari one malformation. Incidental findings: Atherosclerotic calcifications in the carotid siphons . Maxillofacial CT: Soft tissues: No abnormalities.. Bones: No acute fractures or bony abnormalities. Chronic depression of the left lamina papyracea . Orbits: No abnormalities. Paranasal sinuses: Clear. Cervical spine CT: Fractures: None. Soft tissues: No gross abnormalities. Atlantoaxial articulation: Intact. Degenerative changes Alignment: Normal lordosis. No scoliosis. Cervicomedullary junction: No abnormalities. The foramen magnum is patent. Vertebrae: No infection or neoplasm. Degenerative changes: Grossly unchanged multilevel degenerative changes. Incidental findings: Atherosclerotic calcifications of the carotid bulbs with retropharyngeal course of the IAC. Impression: Head CT: 1. No acute intracranial abnormality. Facial CT: 1. No acute facial abnormality. Cervical spine CT: 1. No acute cervical abnormalities. 2. Cannot exclude ligament, spinal cord and or vascular abnormalities on the basis of this examination. Signed by: DR Erik Velásquez M.D. on 08/13 2:21 AM Dictated By: ERIK PERSAUD MD 0 Transcribed By: MAYDA on 08/13/17220 COPY TO: TRACY HERNÁNDEZ [employer] CT ABDOMEN/PELVIS WO [place] [address] Patient Name: LISA CHANDLER MR #: [id number] : 1930 Age/Sex: 87/F Req #: [id number] Adm Physician: Ordered by: TRACY HERNÁNDEZ [employer] Report #: [id number] Location: ER Room/Bed: Procedure: [id number] CT/CT ABDOMEN/PELVIS WO Exam Date: Exam Time: REPORT STATUS: Signed EXAM: CT Abdomen and Pelvis WITHOUT contrast INDICATION: Rectal bleeding COMPARISON: None. TECHNIQUE : Abdomen and pelvis were scanned utilizing a multidetector helical scanner from the lung base to the pubic symphysis without administration of IV contrast. Absence of intravenous contrast decreases sensitivity for detection of focal lesions and vascular pathology. Coronal and sagittal reformations were obtained. Routine protocol was performed. IV CONTRAST: None. ORAL CONTRAST: Water RADIATION DOSE: Total DLP: 722.49 mGy*cm Estimated effective dose: (DLP x 0.015 x size factor) mSv COMPLICATIONS: None FINDINGS: LINES and TUBES: ICD device is visualized in the left upper chest with distal leads within the right atrium, right ventricle and coronary sinus.. LOWER THORAX : Coronary artery disease with evidence of mitral valve annulus calcification HEPATOBILIARY: No focal hepatic lesions. No biliary ductal dilation. GALLBLADDER: No radio-opaque stones or sludge. No wall thickening. SPLEEN: No splenomegaly. PANCREAS: No focal masses or ductal dilatation. ADRENALS: No adrenal nodules KIDNEYS/URETERS : No hydronephrosis. Atrophic kidneys with suspected chronic medical renal disease. There is a 2.8 cm simple cyst in the upper pole of the right kidney. No stones. GI TRACT: Circumferential thickening of the rectum compatible with proctitis. There are diverticula within the colon without evidence of diverticulitis. Appendix is not clearly identified. There is however no fat stranding or adenopathy in the right lower quadrant to suggest appendicitis. PELVIC ORGANS/BLADDER: Peck catheter decompresses the urinary bladder. LYMPH NODES: No lymphadenopathy. VESSELS: There is severe atherosclerotic disease in the aorta and major arterial branches. PERITONEUM / RETROPERITONEUM: No free air or fluid. BONES: There are degenerative changes in the lumbar spine. SOFT TISSUES: Unremarkable. IMPRESSION: 1. No evidence of acute intra-abdominal or pelvic abnormality. 2. Diffuse atherosclerotic disease of the thoracoabdominal aorta and branches. 3. Diverticulosis without evidence of diverticulitis. 4. Thickening of the rectum compatible with proctitis Signed by: Dr. Gregory Man M.D. on 08/13/2017 3:44 AM Dictated By: GREGORY ZAVALA MD 3 Transcribed By: MAYDA on 08/13/17343 COPY TO: TRACY HERNÁNDEZ NP
[2017-09-26] MEDS ORDERED: SODIUM CHLORIDE 0.9% 500ML 500 ML IV ONE (11:00)
[2017-09-26] MEDS ORDERED: ZIPRASIDONE 20 MG VIAL IM STA ×2 (12:01→17:42)
[2017-09-26 12:11] LABS: BASOPHILS % 0.3 % (0.0-1.0); EOSINOPHILS # (AUTO) 0.3 (0.0-0.4); EOSINOPHILS % 1.9 % (0.0-6.0); HEMATOCRIT 34.6 % (34.2-44.1); HEMOGLOBIN 10.9 g/dL (12.0-16.0); LYMPHOCYTES # (AUTO) 1.6 (1.0-3.2); LYMPHOCYTES % 11.2 % (18.0-39.1); MEAN CORPUSCULAR HEMOGLOBIN 27.9 pg (28-32); MEAN CORPUSCULAR HGB CONC 31.5 g/dL (31-35); MEAN CORPUSCULAR VOLUME 88.7 fL (81-99); MONOCYTES # (AUTO) 1.2 (0.2-0.8); MONOCYTES % 8.3 % (4.4-11.3); NEUTROPHILS # (AUTO) 10.9 (2.1-6.9); NEUTROPHILS % 77.7 % (38.7-80.0); PLATELET COUNT 136 x10e3/uL (140-360); RED CELL DISTRIBUTION WIDTH 17.2 % (11.7-14.4)
[2017-09-26 12:39] LABS: ALBUMIN 3.5 g/dL (3.5-5.0); ALBUMIN/GLOBULIN RATIO 0.7 (0.8-2.0); ANION GAP 21.9 mmol/L (8-16); CALCIUM 8.6 mg/dL (8.4-10.2); CREATININE, SERUM 1.61 mg/dL (0.57-1.11); POTASSIUM 3.9 mmol/L (3.5-5.1)
[2017-09-26 12:45] LABS: CREATINE KINASE MB 1.7 ng/mL (0-5.0)
--- NOTE | 2017-09-26 14:08 | Diagnostic Imaging Report ---
PROCEDURE: A single AP view of the chest. COMPARISON: None. INDICATIONS: AMS FINDINGS: Lines/tubes: Stable left upper chest cardiac device. Lungs: The lungs are well inflated and clear. There is no evidence of consolidation or overt pulmonary edema. Pleura: There is no pleural effusion or pneumothorax. Heart and mediastinum: Stable enlargement of the cardiac silhouette. Mild central pulmonary venous congestion Bones: No acute bony abnormality. IMPRESSION: 1. stable enlargement of the cardiac silhouette with mild central pulmonary venous congestion. No consolidation or effusion. Chad Copeland M.D. Dictated by: Chad Copeland M.D. on 09/26/2017 at 14:08 Electronically approved by: Chad Copeland M.D. on 09/26/2017 at 14:08
[2017-09-26] MEDS ORDERED: PIPER-TAZ 3.375 GM 50 ML IV STA (14:37)
[2017-09-26] MEDS ORDERED: VANCOMYCIN 1GM/NS 250 ML 250 ML IV STA (14:37)
[2017-09-26] MEDS ORDERED: SODIUM CHLORIDE 0.9% 1000ML 500 ML IV SCH (14:45)
[2017-09-26] MEDS ORDERED: SODIUM CHLORIDE 0.9% 500ML 500 ML ONE (15:07)
--- NOTE | 2017-09-26 15:17 | Diagnostic Imaging Report ---
Examination: CT head without contrast Clinical Indication: Confusion. Altered mental status. Technique: Transaxial noncontrast images from the skull base through the vertex were obtained. Sagittal and coronal reformatted images were done. Comparison: Head CT performed August 13, 2017. Findings: Scalp: No abnormalities. Bones: Intact. No fractures. No blastic or lytic lesions. Brain sulci: Mild volume loss for patient's age. Ventricles: No hydrocephalus. Extra-axial space: No abnormalities. Parenchyma: Again demonstrated are patchy areas of low-attenuation within subcortical and periventricular white matter, nonspecific, but could represent microvascular ischemic disease. No masses, hemorrhage, or acute or chronic cortical based vascular insults. Suprasellar region: No abnormalities. Craniocervical junction: The foramen magnum is patent. No Chiari one malformation. Incidental findings: Atherosclerotic calcification of the cavernous and supraclinoid internal carotid and V4 segments of the bilateral vertebral arteries. Impression: 1. No new or acute intracranial finding. No change from prior head CT performed August 13, 2017. 2. Unchanged moderate chronic microvascular ischemic change. 3. Unchanged mild volume loss. Signed by: Dr. Ashleigh Casey M.D. on 09/26/2017 3:14 PM
[2017-09-26 16:01] LABS: INR 1.32; PROTHROMBIN TIME 15.4 seconds (11.9-14.5)
[2017-09-26] MEDS ORDERED: ZIPRASIDONE 20 MG VIAL IM PRN (17:00)
[2017-09-26] MEDS ORDERED: ONDANSETRON HCL INJ 2 MG/ML VIAL IV PRN (17:30)
[2017-09-26] MEDS: SODIUM CHLORIDE 0.9% 1000ML 1,000 ML IV SCH (17:41)
[2017-09-26] MEDS: CEFEPIME HCL 1 GM VIAL IV SCH (17:41)
[2017-09-26 18:23] LABS: BILIRUBIN,URINE NEGATIVE (NEGATIVE); CLARITY,URINE CLOUDY (CLEAR); COLOR,URINE YELLOW (YELLOW); KETONES,URINE NEGATIVE (NEGATIVE); LEUKOCYTE ESTERASE ,URINE 2+ (NEGATIVE); NITRITE,URINE POSITIVE (NEGATIVE); PROTEIN,URINE DIPSTICK 2+ (NEGATIVE); URINE UROBILINOGEN 0.2 mg/dL (0.2 - 1)
[2017-09-26 18:27] LABS: AMPHETAMINES SCREEN,URINE NEGATIVE (NEGATIVE); BENZODIAZEPINES SCREEN,URINE POSITIVE (NEGATIVE); PHENCYCLIDINE SCREEN,URINE NEGATIVE (NEGATIVE)
[2017-09-26] MEDS ORDERED: ACETAMINOPHEN 1000 MG/100 ML IV STA (18:30)
[2017-09-26 18:37] LABS: BACTERIA,URINE PRESENT /HPF
[2017-09-26 18:38] LABS: AMORPHOUS SEDIMENT,URINE MANY (FEW)
[2017-09-27] MEDS: SODIUM CHLORIDE 0.9% 1000ML 1,000 ML IV SCH (03:20)
[2017-09-27 04:33] LABS: BASOPHILS % 0.4 % (0.0-1.0); EOSINOPHILS # (AUTO) 0.1 (0.0-0.4); EOSINOPHILS % 1.3 % (0.0-6.0); HEMATOCRIT 30.9 % (34.2-44.1); HEMOGLOBIN 9.5 g/dL (12.0-16.0); LYMPHOCYTES % 9.6 % (18.0-39.1); MEAN CORPUSCULAR HEMOGLOBIN 27.7 pg (28-32); MEAN CORPUSCULAR HGB CONC 30.7 g/dL (31-35); MEAN CORPUSCULAR VOLUME 90.1 fL (81-99); MONOCYTES % 9.6 % (4.4-11.3); NEUTROPHILS # (AUTO) 8.1 (2.1-6.9); NEUTROPHILS % 78.5 % (38.7-80.0); PLATELET COUNT 155 x10e3/uL (140-360); RED BLOOD COUNT 3.43 x10e6/uL (3.6-5.1); RED CELL DISTRIBUTION WIDTH 17.5 % (11.7-14.4)
[2017-09-27 04:51] LABS: ANION GAP 18.3 mmol/L (8-16); CALCIUM 7.5 mg/dL (8.4-10.2); CREATININE, SERUM 1.37 mg/dL (0.57-1.11); POTASSIUM 3.3 mmol/L (3.5-5.1)
[2017-09-27] MEDS: VANCOMYCIN 1GM/NS 250 ML 250 ML IV SCH ×2 (05:19→14:39)
[2017-09-27] MEDS: CEFEPIME HCL 1 GM VIAL IV SCH ×3 (10:55→22:26)
[2017-09-27 11:00] VITALS: BP 133/79
[2017-09-27] MEDS ORDERED: DIGOXIN125 MCG PO (11:36)
[2017-09-27] MEDS ORDERED: CATAPRES0.2 MG PO (11:36)
[2017-09-27] MEDS ORDERED: LACTULOSE20 GM/30 M PO (11:36)
[2017-09-27] MEDS ORDERED: NORVASC5 MG PO (11:48)
[2017-09-27] MEDS ORDERED: CHLORDIAZEPOXI1 EACH PO (11:48)
[2017-09-27] MEDS ORDERED: IPRATROPIU0.2 MG/1 M NEB ×2 (11:58→14:30)
[2017-09-27] MEDS ORDERED: NYSTATIN1 EAC1 (12:14)
[2017-09-27] MEDS ORDERED: SENNA LAXATIVE1 EACH (12:17)
[2017-09-27 13:13] VITALS: BP 144/78
[2017-09-27 13:30] VITALS: BP 144/78
--- NOTE | 2017-09-27 13:33 | History and Physical ---
CHIEF COMPLAINT: Confusion. HISTORY OF PRESENT ILLNESS: This is an 87-year-old white woman who was transferred from a local skilled nursing to [facility] emergency room because of altered mentation. According to family members, the patient had been more confused in the last 2 days prior to admission. In the emergency room, the patient was found to have urinary tract infection as well as white blood cell count of 14,000. Also, the patient's BUN and creatinine were 26 and 1.61 in the emergency room. Moreover, the patient's B-natriuretic peptide level was elevated at 693. Also, the patient's lactic acid level was elevated at 20.7. Chest x-ray performed in the emergency room revealed findings consistent with congestive heart failure, but no obvious consolidation or effusion was appreciated. The patient underwent a CT of the brain in the emergency room, which did not reveal any acute findings. The patient was admitted for further evaluation and treatment. REVIEW OF SYSTEMS: GENERAL: More confused over the last 2 days. No fever or chills. HEENT: No headaches, no visual changes. CARDIOVASCULAR/RESPIRATORY: No chest pain, no shortness of breath and no cough. GI: No recent melena or hematochezia. The patient has had poor appetite for several weeks. : Recently diagnosed urinary tract infection. NEUROMUSCULAR: The patient is predominantly bedbound. ALLERGIES: CODEINE, IODINE, MORPHINE, PROPOXYPHENE, ZOLPIDEM. FAMILY HISTORY: Noncontributory. . PAST SURGICAL HISTORY: 1. Bilateral knee replacements. 2. Cholecystectomy. 3. Hysterectomy. 4. History of AICD placement. SOCIAL HISTORY: She is a . She lives in skilled nursing. She was a former tobacco smoker. No history of alcohol use. PAST MEDICAL HISTORY: 1. Chronic systolic/diastolic congestive heart failure. 2. Coronary artery disease. 3. Atrial fibrillation. 4. Hypertensive heart disease. 5. Hyperlipidemia. 6. Stage 3 chronic kidney disease. 7. Mild to moderate dementia. 8. Major depressive disorder. 9. History of lower gastrointestinal bleeding secondary to diverticular hemorrhage in July 2017. CURRENT HOME MEDICATIONS: 1. Acetaminophen 325 mg q.6 h. p.r.n. pain. 2. Albuterol inhaler 2 puffs q.i.d. 3. Allopurinol 100 mg daily. 4. Alprazolam 0.5 mg b.i.d. p.r.n. anxiety. 5. Amlodipine 5 mg daily. 6. Aspirin 81 mg daily. 7. Librax once daily as needed for abdominal cramping. 8. Clonidine 0.1 q.8 h. 9. Digoxin 125 mcg daily. 10. Furosemide 40 mg daily. 11. Gabapentin 200 mg in the morning and 100 mg at night. 12. Strawberry 10/325 one pill every night. 13. Ipratropium nebs q.6 h. as needed. 14. Lactulose 20 grams daily. 15. Metoprolol tartrate 25 mg daily. 16. Nystatin powder apply to effected area twice daily. 17. Omeprazole 20 mg daily. 18. Mirapex 0.125 mg t.i.d. 19. Risperdal 0.25 mg once daily. 20. Senna S one b.i.d. 21. Sertraline 150 mg daily. 22. Spironolactone 25 mg daily. PHYSICAL EXAMINATION GENERAL: She is awake, oriented to self only. She gets confused easily. She has obvious dementia. She does not appear to be any obvious distress. Her adult son is at bedside. VITAL SIGNS: Height if 5 feet 1 inch, weight 200 pounds, calculated body mass is 37. Blood pressure is 133/79, pulse 66, respiratory rate 16, temperature 97.5, oxygen saturation 93% on 3 liters of oxygen. In the emergency room, the patient's temperature was 100.6. INTEGUMENT: Skin is warm and dry. Slight pallor. No jaundice or diaphoresis. The patient's skin has a dusky hue. HEENT: Anicteric sclerae with moist mucous membranes. NECK: Supple. No evidence of jugular venous distention. CARDIOVASCULAR: Distant heart sounds. Regular rate and rhythm. S3 gallop. LUNGS: Faint crackles at the bases. ABDOMEN: Obese, benign. EXTREMITIES: No edema or deformity. NEUROLOGIC: Intact. DIAGNOSES 1. Sepsis secondary to urinary tract infection. 2. Metabolic encephalopathy from sepsis secondary to urinary tract infection. 3. Gjjmd-nd-hxxwume renal failure. 4. Dzquw-ua-jwytlqz systolic/diastolic congestive heart failure. 5. Atrial fibrillation. 6. History of lower gastrointestinal bleeding (sigmoid diverticular hemorrhage) in July 2017. 7. Mild to moderate dementia. PLAN: 1. Will honor the patient's do not resuscitate code status. 2. Will stop intravenous fluids. 3. Follow renal function. 4. Continue congestive heart failure medical management. 5. Follow urine and blood culture. 6. Continue intravenous antibiotics. 7. I spoke at length with adult son about end-of-life issues. 8. Informed the adult son that the patient may benefit from palliative treatment in the form of hospice care. I spent an hour in the care of this patient. Job#: [id number] GH MTDD
[2017-09-27] MEDS: NYSTATIN 15 GM POWDER UD BTL TOP SCH (14:15)
[2017-09-27] MEDS ORDERED: IPRATROPIUM BROMIDE 0.02% 2.5 ML NEB NEB PRN (14:15)
[2017-09-27] MEDS ORDERED: COMBIVENT RESPIM4 GM NEB (14:24)
[2017-09-27] MEDS ORDERED: IPRAT-ALBUT 0.5-3 ML NEB (14:30)
[2017-09-27] MEDS: POTASSIUM CHLORIDE 10 MEQ TABCR PO NR (14:39)
[2017-09-27] MEDS: PRAMIPEXOLE DIHYDROCHLORIDE 0.25 MG TAB PO SCH ×2 (15:00→21:26)
[2017-09-27] MEDS ORDERED: ALPRAZOLAM 0.25 MG TAB PO PRN (15:30)
[2017-09-27] MEDS ORDERED: ALBUTEROL SULFATE HFA 8GM INHALATION AEROSOL INH SCH (15:30)
[2017-09-27] MEDS ORDERED: NON-FORMULARY MEDICATION (Omeprazole (Prilosec) 20 MG) PO SCH (16:15)
[2017-09-27] MEDS: FUROSEMIDE 40 MG TAB PO SCH (17:07)
[2017-09-27] MEDS: METOPROLOL TARTRATE 25 MG TAB PO SCH (17:17)
[2017-09-27 17:37] VITALS: BP 159/86
[2017-09-27] MEDS ORDERED: PANTOPRAZOLE SOD 40 MG TABEC PO SCH (18:00)
[2017-09-27] MEDS: ALBUTEROL/IPRATROPIUM 3 ML NEB NEB SCH (19:00)
[2017-09-27 20:16] VITALS: BP 137/88
[2017-09-27 20:19] VITALS: BP 137/88
[2017-09-27] MEDS: GABAPENTIN 100 MG CAP PO SCH (21:26)
[2017-09-27] MEDS: SERTRALINE HCL 100 MG TAB PO SCH (21:26)
[2017-09-27] MEDS: CLONIDINE HCL 0.2 MG TAB PO SCH (22:26)
[2017-09-28] VITALS (9 sets, daily range): BP systolic 111–133; BP diastolic 47–74
[2017-09-28] MEDS: NYSTATIN 15 GM POWDER UD BTL TOP SCH ×2 (02:15→14:32)
[2017-09-28] MEDS: ALBUTEROL/IPRATROPIUM 3 ML NEB NEB SCH ×4 (02:42→18:00)
[2017-09-28] MEDS: VANCOMYCIN 1GM/NS 250 ML 250 ML IV SCH ×2 (03:43→15:30)
[2017-09-28] MEDS: CLONIDINE HCL 0.2 MG TAB PO SCH ×3 (06:36→21:06)
[2017-09-28 06:44] LABS: BASOPHILS % 0.5 % (0.0-1.0); EOSINOPHILS # (AUTO) 0.3 (0.0-0.4); EOSINOPHILS % 4.3 % (0.0-6.0); HEMATOCRIT 28.2 % (34.2-44.1); HEMOGLOBIN 8.4 g/dL (12.0-16.0); LYMPHOCYTES # (AUTO) 0.6 (1.0-3.2); LYMPHOCYTES % 7.8 % (18.0-39.1); MEAN CORPUSCULAR HEMOGLOBIN 27.5 pg (28-32); MEAN CORPUSCULAR HGB CONC 29.8 g/dL (31-35); MEAN CORPUSCULAR VOLUME 92.2 fL (81-99); MONOCYTES # (AUTO) 0.6 (0.2-0.8); MONOCYTES % 8.5 % (4.4-11.3); NEUTROPHILS # (AUTO) 5.8 (2.1-6.9); NEUTROPHILS % 78.2 % (38.7-80.0); PLATELET COUNT 124 x10e3/uL (140-360); RED BLOOD COUNT 3.06 x10e6/uL (3.6-5.1); RED CELL DISTRIBUTION WIDTH 17.5 % (11.7-14.4)
[2017-09-28 07:06] LABS: ALBUMIN 2.5 g/dL (3.5-5.0); ALBUMIN/GLOBULIN RATIO 0.7 (0.8-2.0); ALKALINE PHOSPHATASE 65 IU/L (40-150); ANION GAP 14.4 mmol/L (8-16); BLOOD UREA NITROGEN 21 mg/dL (7-26); BUN/CREATININE RATIO 19 (6-25); CALCIUM 7.4 mg/dL (8.4-10.2); CARBON DIOXIDE 26 mmol/L (22-29); CHLORIDE 110 mmol/L (98-107); CREATININE, SERUM 1.12 mg/dL (0.57-1.11); EST GLOMERULAR FILTRATION RATE 46 ML/MIN (60-); GLUCOSE 97 mg/dL (74-118); POTASSIUM 3.4 mmol/L (3.5-5.1); SODIUM 147 mmol/L (136-145)
[2017-09-28 07:09] LABS: ALANINE AMINOTRANSFERASE < 6 IU/L (0-55)
[2017-09-28] MEDS ORDERED: SENNOSIDES 8.6 MG TAB PO SCH (09:00)
[2017-09-28] MEDS: LACTULOSE SYRUP 20 GM/30 ML UDC PO SCH (09:00)
[2017-09-28] MEDS: DIGOXIN 0.125 MG TAB PO SCH (09:21)
[2017-09-28] MEDS: PRAMIPEXOLE DIHYDROCHLORIDE 0.25 MG TAB PO SCH ×3 (09:21→20:39)
[2017-09-28] MEDS: GABAPENTIN 100 MG CAP PO SCH ×2 (09:21→20:39)
[2017-09-28] MEDS: FUROSEMIDE 40 MG TAB PO SCH ×2 (09:21→16:46)
[2017-09-28] MEDS: SPIRONOLACTONE 25 MG TAB PO SCH (09:21)
[2017-09-28] MEDS: METOPROLOL TARTRATE 25 MG TAB PO SCH ×2 (09:21→16:47)
[2017-09-28] MEDS: AMLODIPINE BESYLATE 5 MG TAB PO SCH (09:22)
[2017-09-28] MEDS: ALLOPURINOL 100 MG TAB PO SCH (09:22)
[2017-09-28] MEDS: RISPERIDONE 0.5 MG TAB PO SCH (09:22)
[2017-09-28] MEDS ORDERED: POTASSIUM CHLORIDE 20MEQ/15ML UDC PO NR (10:15)
[2017-09-28] MEDS: CEFEPIME HCL 1 GM VIAL IV SCH ×2 (10:55→21:22)
[2017-09-28] MEDS: POTASSIUM CHLORIDE 10 MEQ TABCR PO NR (10:57)
[2017-09-28 11:17] LABS: LYMPHOCYTES % (MANUAL) 9 % (19-48); MONOCYTES % (MANUAL) 9 % (3.4-9.0); NEUTROPHILS % (MANUAL) 79 % (40-74)
[2017-09-28 11:18] LABS: EOSINOPHILS % (MANUAL) 2 % (0-7); PLATELET ESTIMATE ADEQUATE; PLATELET MORPHOLOGY COMMENT NORMAL; RBC MORPHOLOGY COMMENT NORMAL
[2017-09-28 12:30] LABS: BILIRUBIN,URINE NEGATIVE (NEGATIVE); KETONES,URINE NEGATIVE (NEGATIVE); LEUKOCYTE ESTERASE ,URINE 2+ (NEGATIVE); NITRITE,URINE NEGATIVE (NEGATIVE); URINE UROBILINOGEN 0.2 mg/dL (0.2 - 1)
[2017-09-28 12:31] LABS: PROTEIN,URINE DIPSTICK 2+ (NEGATIVE)
[2017-09-28 12:32] LABS: CLARITY,URINE HAZY (CLEAR); COLOR,URINE YELLOW (YELLOW)
[2017-09-28 12:37] LABS: AMORPHOUS SEDIMENT,URINE FEW (FEW); BACTERIA,URINE MODERATE /HPF; EPITHELIAL CELLS,URINE FEW /LPF; WBC,URINE (MAN) 21-50 /HPF (0-5)
[2017-09-28] MEDS: HYDROCODONE/APAP 10MG-325MG TAB PO PRN (13:05)
[2017-09-28] MEDS: SERTRALINE HCL 100 MG TAB PO SCH (20:39)
[2017-09-29] MEDS: ALBUTEROL/IPRATROPIUM 3 ML NEB NEB SCH ×2 (01:18→06:00)
[2017-09-29] MEDS: NYSTATIN 15 GM POWDER UD BTL TOP SCH ×2 (03:36→16:05)
[2017-09-29] MEDS: VANCOMYCIN 1GM/NS 250 ML 250 ML IV SCH ×2 (03:42→15:00)
[2017-09-29 04:24] VITALS: BP 151/68
[2017-09-29] MEDS: HYDROCODONE/APAP 10MG-325MG TAB PO PRN (04:31)
[2017-09-29] MEDS: CLONIDINE HCL 0.2 MG TAB PO SCH ×3 (05:16→21:02)
[2017-09-29 06:12] LABS: BASOPHILS % 0.4 % (0.0-1.0); EOSINOPHILS # (AUTO) 0.4 (0.0-0.4); EOSINOPHILS % 5.3 % (0.0-6.0); HEMATOCRIT 27.6 % (34.2-44.1); HEMOGLOBIN 8.3 g/dL (12.0-16.0); LYMPHOCYTES # (AUTO) 0.7 (1.0-3.2); LYMPHOCYTES % 10.9 % (18.0-39.1); MEAN CORPUSCULAR HEMOGLOBIN 27.9 pg (28-32); MEAN CORPUSCULAR HGB CONC 30.1 g/dL (31-35); MEAN CORPUSCULAR VOLUME 92.9 fL (81-99); MONOCYTES # (AUTO) 0.6 (0.2-0.8); MONOCYTES % 9.1 % (4.4-11.3); NEUTROPHILS % 73.9 % (38.7-80.0); PLATELET COUNT 125 x10e3/uL (140-360); RED BLOOD COUNT 2.97 x10e6/uL (3.6-5.1); RED CELL DISTRIBUTION WIDTH 17.5 % (11.7-14.4)
--- NOTE | 2017-09-29 06:48 | Diagnostic Imaging Report ---
EXAM: CHEST SINGLE (PORTABLE), AP 1 view INDICATION: CHF COMPARISON: AP view of the chest August 18, 2017 FINDINGS: LINES/TUBES: Stable position of left approach single lead cardiac device. LUNGS: No consolidations or edema. PLEURA: No effusions or pneumothorax. HEART AND MEDIASTINUM: Mild cardiac enlargement. BONES AND SOFT TISSUES: No acute findings. IMPRESSION: Mild cardiac enlargement without pulmonary edema. Signed by: Dr. Iliana Mercer M.D. on 09/29/2017 6:45 AM
[2017-09-29 06:53] LABS: ANION GAP 13.4 mmol/L (8-16); CALCIUM 7.9 mg/dL (8.4-10.2); CREATININE, SERUM 1.17 mg/dL (0.57-1.11); POTASSIUM 3.4 mmol/L (3.5-5.1)
[2017-09-29 07:30] VITALS: BP 115/73
[2017-09-29] MEDS: GABAPENTIN 100 MG CAP PO SCH ×2 (08:40→21:01)
[2017-09-29] MEDS: METOPROLOL TARTRATE 25 MG TAB PO SCH ×2 (08:40→17:00)
[2017-09-29] MEDS: SPIRONOLACTONE 25 MG TAB PO SCH (08:40)
[2017-09-29] MEDS: PRAMIPEXOLE DIHYDROCHLORIDE 0.25 MG TAB PO SCH ×3 (08:40→21:01)
[2017-09-29] MEDS: DIGOXIN 0.125 MG TAB PO SCH (08:40)
[2017-09-29] MEDS: FUROSEMIDE 40 MG TAB PO SCH ×2 (08:40→17:27)
[2017-09-29] MEDS: LACTULOSE SYRUP 20 GM/30 ML UDC PO SCH (08:40)
[2017-09-29] MEDS: ALLOPURINOL 100 MG TAB PO SCH (08:41)
[2017-09-29] MEDS: AMLODIPINE BESYLATE 5 MG TAB PO SCH (08:41)
[2017-09-29] MEDS: RISPERIDONE 0.5 MG TAB PO SCH (08:41)
[2017-09-29] MEDS ORDERED: LACTULOSE SYRUP 20 GM/30 ML UDC PO PRN (09:00)
[2017-09-29] MEDS ORDERED: SENNOSIDES 8.6 MG TAB PO SCH (09:00)
[2017-09-29] MEDS ORDERED: PANTOPRAZOLE SO40 MG PO (09:10)
[2017-09-29] MEDS: SENNOSIDES 8.6 MG TAB PO SCH ×2 (09:11→17:28)
[2017-09-29] MEDS: CEFEPIME HCL 1 GM VIAL IV SCH ×2 (10:11→21:02)
[2017-09-29 12:42] VITALS: BP 115/54
[2017-09-29 14:05] VITALS: BP 121/56
[2017-09-29 15:49] VITALS: BP 109/55
[2017-09-29 20:18] VITALS: BP 115/56
[2017-09-29] MEDS: SERTRALINE HCL 100 MG TAB PO SCH (21:02)
[2017-09-30] VITALS (9 sets, daily range): BP systolic 108–137; BP diastolic 46–72
[2017-09-30] MEDS: NYSTATIN 15 GM POWDER UD BTL TOP SCH ×2 (02:07→15:39)
[2017-09-30] MEDS: VANCOMYCIN 1GM/NS 250 ML 250 ML IV SCH ×2 (03:00→15:00)
[2017-09-30] MEDS: ALBUTEROL/IPRATROPIUM 3 ML NEB NEB SCH ×3 (03:50→19:30)
[2017-09-30] MEDS: CLONIDINE HCL 0.2 MG TAB PO SCH ×3 (06:22→21:08)
[2017-09-30] MEDS: SENNOSIDES 8.6 MG TAB PO SCH ×2 (09:00→17:00)
[2017-09-30] MEDS: DIGOXIN 0.125 MG TAB PO SCH (09:18)
[2017-09-30] MEDS: SPIRONOLACTONE 25 MG TAB PO SCH (09:18)
[2017-09-30] MEDS: FUROSEMIDE 40 MG TAB PO SCH ×2 (09:19→17:44)
[2017-09-30] MEDS: GABAPENTIN 100 MG CAP PO SCH ×2 (09:19→21:18)
[2017-09-30] MEDS: METOPROLOL TARTRATE 25 MG TAB PO SCH ×2 (09:19→17:44)
[2017-09-30] MEDS: CEFEPIME HCL 1 GM VIAL IV SCH ×2 (09:19→21:01)
[2017-09-30] MEDS: AMLODIPINE BESYLATE 5 MG TAB PO SCH (09:19)
[2017-09-30] MEDS: RISPERIDONE 0.5 MG TAB PO SCH (09:19)
[2017-09-30] MEDS: ALLOPURINOL 100 MG TAB PO SCH (09:19)
[2017-09-30] MEDS: PRAMIPEXOLE DIHYDROCHLORIDE 0.25 MG TAB PO SCH ×3 (09:19→21:01)
[2017-09-30] MEDS: SERTRALINE HCL 100 MG TAB PO SCH (21:01)
[2017-10-01] VITALS (8 sets, daily range): BP systolic 121–148; BP diastolic 58–65
[2017-10-01] MEDS: ALBUTEROL/IPRATROPIUM 3 ML NEB NEB SCH ×6 (00:30→19:30)
[2017-10-01] MEDS: NYSTATIN 15 GM POWDER UD BTL TOP SCH ×2 (02:15→14:15)
[2017-10-01] MEDS: VANCOMYCIN 1GM/NS 250 ML 250 ML IV SCH ×2 (03:00→15:30)
[2017-10-01] MEDS: CLONIDINE HCL 0.2 MG TAB PO SCH ×3 (05:16→22:00)
[2017-10-01] MEDS: METOPROLOL TARTRATE 25 MG TAB PO SCH ×2 (09:00→17:00)
[2017-10-01] MEDS: DIGOXIN 0.125 MG TAB PO SCH (09:00)
[2017-10-01] MEDS: AMLODIPINE BESYLATE 5 MG TAB PO SCH (10:00)
[2017-10-01] MEDS: SPIRONOLACTONE 25 MG TAB PO SCH (10:00)
[2017-10-01] MEDS: GABAPENTIN 100 MG CAP PO SCH ×2 (10:00→21:36)
[2017-10-01] MEDS: RISPERIDONE 0.5 MG TAB PO SCH (10:00)
[2017-10-01] MEDS: SENNOSIDES 8.6 MG TAB PO SCH ×2 (10:00→17:00)
[2017-10-01] MEDS: PRAMIPEXOLE DIHYDROCHLORIDE 0.25 MG TAB PO SCH ×3 (10:00→21:36)
[2017-10-01] MEDS: FUROSEMIDE 40 MG TAB PO SCH ×2 (10:00→17:00)
[2017-10-01] MEDS: ALLOPURINOL 100 MG TAB PO SCH (10:00)
[2017-10-01] MEDS: CEFEPIME HCL 1 GM VIAL IV SCH (10:49)
[2017-10-01] MEDS: ACETAMINOPHEN 325 MG TAB PO PRN (15:49)
[2017-10-01] MEDS ORDERED: MEROPENEM 1GRAM 1 GM in SODIUM CHLORIDE 0.9% 100 ML 100 ML IV SCH (21:00)
[2017-10-01] MEDS: SERTRALINE HCL 100 MG TAB PO SCH (21:36)
[2017-10-01] MEDS: MEROPENEM 1 GM VIAL IV SCH (21:36)
[2017-10-02] VITALS (7 sets, daily range): BP systolic 110–140; BP diastolic 56–70
[2017-10-02] MEDS: VANCOMYCIN 1GM/NS 250 ML 250 ML IV SCH (02:47)
[2017-10-02] MEDS: NYSTATIN 15 GM POWDER UD BTL TOP SCH ×2 (03:25→14:15)
[2017-10-02] MEDS: HYDROCODONE/APAP 10MG-325MG TAB PO PRN (04:15)
[2017-10-02] MEDS: CLONIDINE HCL 0.2 MG TAB PO SCH ×3 (05:57→22:00)
[2017-10-02] MEDS: ALBUTEROL/IPRATROPIUM 3 ML NEB NEB SCH ×3 (07:25→19:15)
[2017-10-02] MEDS: SPIRONOLACTONE 25 MG TAB PO SCH (09:00)
[2017-10-02] MEDS: PRAMIPEXOLE DIHYDROCHLORIDE 0.25 MG TAB PO SCH ×3 (09:00→21:01)
[2017-10-02] MEDS: GABAPENTIN 100 MG CAP PO SCH ×2 (09:00→21:01)
[2017-10-02] MEDS: DIGOXIN 0.125 MG TAB PO SCH (09:00)
[2017-10-02] MEDS: AMLODIPINE BESYLATE 5 MG TAB PO SCH (09:00)
[2017-10-02] MEDS: RISPERIDONE 0.5 MG TAB PO SCH (09:00)
[2017-10-02] MEDS: SENNOSIDES 8.6 MG TAB PO SCH ×2 (09:00→17:00)
[2017-10-02] MEDS: ALLOPURINOL 100 MG TAB PO SCH (09:00)
[2017-10-02] MEDS: MEROPENEM 1 GM VIAL IV SCH ×2 (09:00→21:01)
[2017-10-02] MEDS: METOPROLOL TARTRATE 25 MG TAB PO SCH ×2 (09:00→17:00)
[2017-10-02] MEDS: FUROSEMIDE 40 MG TAB PO SCH ×2 (09:00→17:00)
[2017-10-02] MEDS: SERTRALINE HCL 100 MG TAB PO SCH (21:01)
[2017-10-03 01:11] VITALS: BP 125/59
[2017-10-03] MEDS: NYSTATIN 15 GM POWDER UD BTL TOP SCH (02:15)
[2017-10-03] MEDS: ACETAMINOPHEN 325 MG TAB PO PRN (04:55)
[2017-10-03 05:35] VITALS: BP 110/61
[2017-10-03] MEDS: CLONIDINE HCL 0.2 MG TAB PO SCH (05:55)
[2017-10-03] MEDS: ALBUTEROL/IPRATROPIUM 3 ML NEB NEB SCH ×2 (06:00)
[2017-10-03 08:30] VITALS: BP 138/64
[2017-10-03] MEDS: SENNOSIDES 8.6 MG TAB PO SCH (09:00)
[2017-10-03] MEDS: METOPROLOL TARTRATE 25 MG TAB PO SCH (09:00)
[2017-10-03] MEDS: RISPERIDONE 0.5 MG TAB PO SCH (09:00)
[2017-10-03] MEDS: ALLOPURINOL 100 MG TAB PO SCH (09:00)
[2017-10-03] MEDS: PRAMIPEXOLE DIHYDROCHLORIDE 0.25 MG TAB PO SCH (09:00)
[2017-10-03] MEDS: FUROSEMIDE 40 MG TAB PO SCH (09:00)
[2017-10-03] MEDS: DIGOXIN 0.125 MG TAB PO SCH (09:00)
[2017-10-03] MEDS: SPIRONOLACTONE 25 MG TAB PO SCH (09:00)
[2017-10-03] MEDS: AMLODIPINE BESYLATE 5 MG TAB PO SCH (09:00)
[2017-10-03] MEDS: GABAPENTIN 100 MG CAP PO SCH (09:30)
[2017-10-03] MEDS: MEROPENEM 1 GM VIAL IV SCH (10:15)
[2017-10-03 12:05] VITALS: BP 120/53
[2017-10-08] MEDS ORDERED: NYSTATIN1 EAC1 TOP (10:01)
[2017-10-08] MEDS ORDERED: MEROPENEM1 GM IV (10:01)
[2017-10-08] MEDS ORDERED: MIRAPEX0.25 MG PO (10:01)
--- NOTE | 2017-11-26 22:21 | Discharge Summary ---
CHIEF COMPLAINT: Altered mental status. FINAL DIAGNOSES: 1. Ofvfr-oxur-ondpoji congestive heart failure. 2. Sepsis/urinary tract infection. 3. Chronic kidney disease, stage 3. DISPOSITION: [facility] facility. An 87-year-old female resident at [facility], brought to the ER here due to issues of altered mentation. Has been increasing in confusion over the last 2 days prior to admission. Patient underwent review in the ER. Vital signs were showing BP 133/79, pulse 66, respirations 16, temperature 97.5. Physical exam is basically benign other than she gets confused easily. She underwent studies in the ER. She was found to have a positive urine. Elevated white count on her hematology studies. BNP was noted to be at 693. Chest x-rays were showing findings consistent with congestive heart failure with no obvious consolidation or effusion. Admission was planned for treatment of sepsis secondary to UTI, metabolic encephalopathy from sepsis secondary to UTI. Acute on chronic renal failure. 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 Atrial fib. History of lower GI bleed. Mild to moderate dementia. From the ER, patient was in IMCU receiving routine IMCU protocol orders receiving a cardiac diet. Vital signs were stable. Patient was started on respiratory treatments. Started on vancomycin 1 gram IV q.12. Daily medications were continuing as well. Cefepime was given 1 gram IV q.12. Initial electrolytes were showing potassium of 3.4. Kidney functions: BUN 21, creatinine 1.12. Glucose 97. CBC: Hemoglobin 8.4, white cell count of 7400. She was placed on a DNR status. Followup potassium was still at 3.4. BUN and creatinine improved slightly to 20 and 1.17 respectively. Hemoglobin trended down to 8.3. Family discussion led to request for comfort measures only. Patient was resting comfortably. She was in no acute distress. Hospice was being consulted. Agreement was made for discharge, to be placed at [facility], and with case management assistance placement was carried out. She was transferred there on 10/03/17. EKGs are showing atrial fibrillation with premature aberrantly conducted complexes, septal infarct age undetermined. With her discharge, she will continue on a DNR status. She was noted be incontinent with bladder and bowel. Current diet will continue. Her MAR sheet will continue as well. I will be monitoring her progress at that location. Staff will be contacting me as needed. Dictated By: VERONICA López Job#: [id number]
== END 2017-10-03 12:30 | DRG 871 ==
LOC: ER 10:31 → ERHOLD 17:34 → IMCU 09-27 08:50 → MED/SURG 09-29 11:00 → MED/SURG3 10-01 10:54
DX: A41.9 Sepsis, unspecified organism (principal); G93.41 Metabolic encephalopathy; I50.43 Acute on chronic combined systolic (congestive) and diastolic (congestive) heart failure; N39.0 Urinary tract infection, site not specified; N17.9 Acute kidney failure, unspecified; I13.0 Hypertensive heart and chronic kidney disease with heart failure and stage 1 through stage 4 chronic kidney disease, or unspecified chronic kidney disease; I48.91 Unspecified atrial fibrillation; N18.3 Chronic kidney disease, stage 3 (moderate); E78.5 Hyperlipidemia, unspecified; F03.90 Unspecified dementia, unspecified severity, without behavioral disturbance, psychotic disturbance, mood disturbance, and anxiety; F32.9 Major depressive disorder, single episode, unspecified; I25.10 Atherosclerotic heart disease of native coronary artery without angina pectoris; Z66 Do not resuscitate; G89.29 Other chronic pain; J44.9 Chronic obstructive pulmonary disease, unspecified; B96.20 Unspecified Escherichia coli [E. coli] as the cause of diseases classified elsewhere; Z16.12 Extended spectrum beta lactamase (ESBL) resistance; Z95.810 Presence of automatic (implantable) cardiac defibrillator; Z79.01 Long term (current) use of anticoagulants
CPT/HCPCS: 36415; 51700; 70450; 71045; 80048; 80053; 80202; 80307; 81001; 82550; 82553; 83605; 83690; 83880; 84484; 85025; 85610; 87040; 87086; 87186; 93005; 94640; 96367; 96376; 97139; 99284; J0692; J2185; J2543; J3370; J3486; J7030; J7040

== ENCOUNTER → 2017-10-08 | Day surgery (SDC) | payer MEDICARE ==
[~2017-10-08] VITALS: Ht 154.9 cm; Wt 101.2 kg
[~2017-10-08] MED LIST changes: +CATAPRES0.2 MG PO; +CHLORDIAZEPOXI1 EACH PO; +COMBIVENT RESPIM4 GM NEB; +IPRAT-ALBUT 0.5-3 ML NEB; +IPRATROPIU0.2 MG/1 M NEB; +LACTULOSE20 GM/30 M PO; +MEROPENEM1 GM IV; +MIRAPEX0.25 MG PO; +NORVASC5 MG PO; +NYSTATIN1 EAC1; +NYSTATIN1 EAC1 TOP; +PANTOPRAZOLE SO40 MG PO; +SENNA LAXATIVE1 EACH; +SODIUM CHLORIDE 0.9% 500ML 500 ML ONE
--- OUTSIDE RECORDS SUMMARY | 2017-10-08 09:45 | XMS REPORT | Continuity of Care Document ---
Author Author [facility] Organization [facility] Address [address] [place] [place] [address] Phone Unavailable Care Team Providers Care Web Merchant Name Role Phone RENEA HWANG DO PCP Insurance Providers Guarantor Lacey Salinas Address [address] [phone] Email Payer [facility] Policy Number [id number] Subscriber's Name Lacey Salinas Relationship 18 Self / Same As Patient Group Number PLAN F Group Name RETIRED Effective Date 17 Payer Medicare A & B Policy Number [id number] Subscriber's Name Lacey Salinas Relationship 18 Self / Same As Patient Group Name RETIRED Effective Date 96 Advance Directives Directive Response Recorded Date/Time Does the patient have an advance directive? No 09/27/17 1:26pm If yes, is advance directive on file with [facility]? No 09/27/17 1:26pm If not on file with [facility] will patient provide a copy? No 09/27/17 1:26pm Do you have a Directive to Physician? No 09/26/17 12:13pm Do you have a Medical Power of Parts Data Writer? No 09/26/17 12:13pm Do you have an out of hospital Do Not Resuscitate Order? No 09/26/17 12:13pm Do you have any special needs we should be aware of? No 09/26/17 12:13pm Do you have a support person here with you today? Yes 09/26/17 12:13pm Did patient receive Notice of Privacy Practices? Yes 09/26/17 12:13pm Did patient receive patient rights and responsibilities? Yes 09/26/17 12:13pm Problems Medical Problem Onset Date Status Acute blood loss anemia Unknown Afib Unknown CHF (congestive heart failure) Unknown Change in mental status Unknown Fever Unknown Lower GI bleed requiring more than 4 units of blood in 24 hours, ICU, or surgery Unknown Pulmonary edema Unknown Medications Current Home Medications Medication Dose Units Route Directions Days Qty Instructions Start Date Acetaminophen 325 Mg Tablet 325 Mg Oral Every 6 Hours as needed for Elevated Temperature 5 Days Albuterol Sulfate (Proair Hfa Inhaler*) 8.5 Gm Inh 2-4 Inh Inhalation As Needed Allopurinol 100 Mg Tablet 100 Mg Oral Daily 30 Tab Alprazolam 0.25 Mg Tablet 0.5 Mg Oral Twice A Day as needed for Anxiety Amlodipine Besylate (Norvasc) 5 Mg Tab 5 Mg Oral Daily 30 Tab Clonidine Hcl (Catapres) 0.2 Mg Tablet 0.1 Mg Oral Every 8 Hours as needed for Elevated Blood Pressure 30 Tab SBP >165 Digoxin 125 Mcg Tablet 0.125 Mg Oral Daily 30 Tab HOLD FOR HR <60 Furosemide 40 Mg Tablet 40 Mg Oral Twice A Day 30 Tab Gabapentin 100 Mg Capsule 200 Mg Oral Am Gabapentin 100 Mg Capsule 100 Mg Oral Pm Hydrocodone Bit/Acetaminophen (Hydrocodon-Acetaminophn 10-325) 1 Each Tablet 1 Tab Oral Bedtime as needed for Pain Ipratropium/Albuterol Sulfate (Iprat-Albut 0.5-3(2.5) Mg/3 Ml) 3 Ml Ampul.neb 2.5 Mg Nebullizer Every 6 Hours for Shortness Of Breath Lactulose 20 Gm/30 Ml Solution 30 Ml Oral Daily as needed for Constipation Metoprolol Tartrate 50 Mg Tablet 25 Mg Oral Twice A Day Pantoprazole Sodium (Protonix) 40 Mg Tablet.dr 40 Mg Oral Daily Pramipexole Di-Hcl (Pramipexole Dihydrochloride) 0.25 Mg Tablet 0.125 Mg Oral Three Times A Day Risperidone 0.5 Mg Tablet 0.25 Mg Oral Daily Sennosides/Docusate Sodium (Senna Laxative Tablet) 1 Each Tablet 8.6 Sertraline Hcl (Zoloft) 100 Mg Tablet 50 Mg Oral Every Evening Spironolactone (Aldactone) 25 Mg Tablet 50 Mg Oral Daily Past Home Medications Medication Directions Ordered Status Altace , 20 Mg Oral Daily Discontinued Amlodipine Besylate (Norvasc) 10 Mg Tab, 10 Mg Oral Every Evening Discontinued Ascorbic Acid (Vitamin C) 500 Mg Capsule.er, 500 Mg Oral Daily Discontinued Aspirin 81 Mg Tab.chew, 81 Mg Oral Daily Discontinued Atorvastatin Calcium 40 Mg Tablet, 20 Mg Oral Bedtime Discontinued Atorvastatin Calcium (Lipitor) 80 Mg Tablet, 80 Mg Oral Bedtime Discontinued Baclofen 10 Mg Tablet, 10 Mg Oral Twice A Day as needed for Muscle Spasms Discontinued Baclofen 10 Mg Tablet, 5 Mg Oral Three Times A Day for Severe Pain (7-10) Discontinued Biotin 2,500 Mcg Capsule, 1000 Mg Oral Twice A Day Discontinued Celecoxib (Celebrex*) 100 Mg Capsule, 0 Oral Discontinued Chlordiazepoxide/Clidinium Br (Chlordiazepoxide-Clidinium Cap) 1 Each Capsule, 1 Each Oral Discontinued Cyclobenzaprine Hcl (Flexeril) 10 Mg Tablet, 10 Mg Oral Three Times A Day Discontinued Digoxin 125 Mcg Tablet, 0.125 Mg Oral Use As Directed Discontinued Diphenhydramine Hcl (Benadryl) 25 Mg Capsule, 50 Mg Oral Every 12 Hours as needed for Allergy Discontinued Gabapentin 100 Mg Capsule, 100 Mg Oral Three Times A Day Discontinued Hydrocodone Bit/Acetaminophen (Hydrocodon-Acetaminophn 10-325) 1 Each Tablet, 1 Tab Oral Every 8-12 Hours Discontinued Ipratropium [place] 0.2 Mg/1 Ml Solution, 2.5 Ml Nebullizer Discontinued Ipratropium [place] 0.2 Mg/1 Ml Solution, 2.5 Ml Nebullizer Discontinued Ipratropium/Albuterol Sulfate (Combivent Respimat Inhal [place]) 4 Gm Aer.w.adap , 2.5 Mg Nebullizer Every 6 Hours as needed for Shortness Of Breath Discontinued Labetalol Hcl 100 Mg Tablet, 100 Mg Oral Twice A Day Discontinued Meclizine Hcl 12.5 Mg Tablet, 12.5 Mg Oral As Needed Discontinued Medrodose Pack , Discontinued Memantine Hcl (Namenda) 10 Mg Tablet, 5 Mg Daily Discontinued Metoprolol Tartrate 50 Mg Tablet, 50 Mg Oral Twice Daily With Meals Discontinued Minocycline Hcl 50 Mg Capsule, 50 Mg Oral Twice A Day 08/11/14 Discontinued Morphine Sulfate (Morphine Sulfate Er) 15 Mg Tablet.er, Twice A Day Discontinued Morphine Sulfate (Ms Contin) 15 Mg Tablet.er, 15 Mg Oral Three Times A Day Discontinued Nystatin 1 Each Powder.ea., 0 Discontinued Nystatin/Triamcin (Nystatin-Triamcinolone Cream) 15 Gm Cream..g., Twice A Day Discontinued [place]-3 Fatty Acids/Fish Oil ([place] 3 1,000 Mg Softgel) 1 Each Capsule, 1 Tab Oral Daily Discontinued Omeprazole (Prilosec) 20 Mg Capsule.dr, 20 Mg Oral Every Evening Discontinued Pramipexole Di-Hcl (Pramipexole Dihydrochloride) 0.25 Mg Tablet, 0.125 Mg Oral Twice A Day Discontinued Pregabalin (Lyrica) 75 Mg Cap, 75 Mg Oral Twice A Day Discontinued Ramipril 10 Mg Capsule, 40 Mg Oral Every Morning Discontinued Ramipril 10 Mg Capsule, 1 Cap Oral Bedtime Discontinued Rampipril , 40 Mg Oral Twice A Day Discontinued Tramadol Hcl (Ultram 50MG*) 50 Mg Tab, 50 Mg Oral Every 4-6 Hours as needed Discontinued Warfarin Sodium 2 Mg Tablet, 6 Mg Oral Daily Discontinued Warfarin Sodium 3 Mg Tablet, 5 Mg Oral Use As Directed Discontinued Warfarin Sodium 2.5 Mg Tablet, 2.5 Mg Oral Use As Directed Discontinued Warfarin Sodium 2.5 Mg Tablet, 5 Mg Oral Sun, Mon, Wed, Fri Discontinued Warfarin Sodium 2.5 Mg Tablet, 2.5 Mg Oral Tu, Th, Sat Discontinued Warfarin Sodium 2.5 Mg Tablet, 5 Mg Oral Daily Discontinued Social History Social History Problem Response Recorded Date/Time Onset Date Status Hx Psychiatric Problems No 09/27/2017 1:26pm Not Applicable Not Applicable Hx Eating Disorder No 09/27/2017 1:26pm Not Applicable Not Applicable Hx Substance Use Disorder No 09/27/2017 1:26pm Not Applicable Not Applicable Hx Depression Yes 09/27/2017 1:26pm Not Applicable Not Applicable Hx Alcohol Use No 09/27/2017 1:26pm Not Applicable Not Applicable Hx Substance Use Treatment No 09/27/2017 1:26pm Not Applicable Not Applicable Hx Physical Abuse No 09/27/2017 1:26pm Not Applicable Not Applicable Smoking Status Start Date Stop Date Former smoker Hospital Discharge Instructions No hospital discharge instruction information available. Plan of Care Discharge Date 10/03/17 12:30pm Disposition TRANSFER [facility] Prescriptions See Medication Section Functional Status Query Response Date Recorded FUNCTIONAL STATUS . September 29, 2017 11:53am Ambulation Ability Total Assistance September 27, 2017 11:00am Toileting Ability Independent October 01, 2017 9:09am Allergies, Adverse Reactions, Alerts Allergen Type Severity Reaction Status Last Updated Iodine Allergy Unknown Active 09/17/16 Lorazepam Adverse Reaction Intermediate causes severe agitation and restlessness Active 09/17/16 Morphine Allergy Mild RASH Active 09/17/16 Codeine Allergy Unknown Active 09/17/16 Propoxyphene Allergy Mild RASH Active 09/17/16 Zolpidem Allergy Unknown HALLUCINATIONS Active 09/17/16 Immunizations No immunization information available. Vital Signs Acute Vital Signs Vital Response Date/Time Temperature (Fahrenheit) 98.5 degrees F (97.6 - 99.5) 10/03/2017 12:05pm Pulse Pulse Rate (adult) 69 bpm (60 - 90) 10/03/2017 12:05pm Respiratory Rate 20 bpm (12 - 24) 10/03/2017 12:05pm Blood Pressure 120/53 mm Hg 10/03/2017 12:05pm Height 5 ft 1 in 09/26/2017 10:54am Weight 223.50 lb 10/02/2017 12:46am Body Mass Index 42.2 kg/m^2 10/02/2017 12:46am Results Laboratory Results Test Name Result Units Flags Reference Collection Date/Time Result Date/ Time Comments Activated Partial Thromboplast Time 32.9 seconds 23.8-35.5 08/14/2017 7: 40am 08/14/2017 8:09am Urine Hyaline Casts 6-10 H 0-1 08/13/2017 1:10am 08/13/2017 1:59am Urine Mucus MANY H RARE 08/13/2017 1:10am 08/13/2017 1:59am Bedside Glucose 119 mg/dL 70-120 08/16/2017 11:48pm 08/17/2017 12:03am Meter ID: [id number] White Blood Count 6.80 x10e3/uL 4.8-10.8 09/29/2017 6:00am 09/29/2017 6 :25am Red Blood Count 2.97 x10e6/uL L 3.6-5.1 09/29/2017 6:00am 09/29/2017 6: 25am Hemoglobin 8.3 g/dL L 12.0-16.0 09/29/2017 6:00am 09/29/2017 6:25am Hematocrit 27.6 % L 34.2-44.1 09/29/2017 6:00am 09/29/2017 6:25am Mean Corpuscular Volume 92.9 fL 81-99 09/29/2017 6:00am 09/29/2017 6: 25am Mean Corpuscular Hemoglobin 27.9 pg L 28-32 09/29/2017 6:00am 2017 6:25am Mean Corpuscular Hemoglobin Concent 30.1 g/dL L 31-35 09/29/2017 6:00am 09/29/2017 6:25am Red Cell Distribution Width 17.5 % H 11.7-14.4 09/29/2017 6:00am 2017 6:25am Platelet Count 125 x10e3/uL L 140-360 09/29/2017 6:00am 09/29/2017 6: 25am Neutrophils (%) (Auto) 73.9 % 38.7-80.0 09/29/2017 6:00am 09/29/2017 6: 25am Lymphocytes (%) (Auto) 10.9 % L 18.0-39.1 09/29/2017 6:00am 09/29/2017 6 :25am Monocytes (%) (Auto) 9.1 % 4.4-11.3 09/29/2017 6:00am 09/29/2017 6: 25am Eosinophils (%) (Auto) 5.3 % 0.0-6.0 09/29/2017 6:00am 09/29/2017 6: 25am Basophils (%) (Auto) 0.4 % 0.0-1.0 09/29/2017 6:00am 09/29/2017 6:25am IM GRANULOCYTES % 0.4 % 0.0-1.0 09/29/2017 6:00am 09/29/2017 6:25am Neutrophils # (Auto) 5.0 2.1-6.9 09/29/2017 6:00am 09/29/2017 6:25am Lymphocytes # (Auto) 0.7 L 1.0-3.2 09/29/2017 6:00am 09/29/2017 6: 25am Monocytes # (Auto) 0.6 0.2-0.8 09/29/2017 6:00am 09/29/2017 6:25am Eosinophils # (Auto) 0.4 0.0-0.4 09/29/2017 6:00am 09/29/2017 6:25am Basophils # (Auto) 0.0 0.0-0.1 09/29/2017 6:00am 09/29/2017 6:25am Absolute Immature Granulocyte (auto 0.03 x10e3/uL 0-0.1 09/29/2017 6: 00am 09/29/2017 6:25am Differential Total Cells Counted 100 09/28/2017 6:10am 09/28/2017 11:18am Neutrophils % (Manual) 79 % H 40-74 09/28/2017 6:10am 09/28/2017 11: 18am Lymphocytes % (Manual) 9 % L 19-48 09/28/2017 6:10am 09/28/2017 11:18am Monocytes % (Manual) 9 % 3.4-9.0 09/28/2017 6:10am 09/28/2017 11:18am Eosinophils % (Manual) 2 % 0-7 09/28/2017 6:10am 09/28/2017 11:18am Basophils % (Manual) 1 % 0-1.5 09/28/2017 6:10am 09/28/2017 11:18am Platelet Estimate ADEQUATE 09/28/2017 6:10am 09/28/2017 11:18am Platelet Morphology Comment NORMAL 09/28/2017 6:10am 09/28/2017 11: 18am Red Cell Morphology Comment NORMAL 09/28/2017 6:10am 09/28/2017 11: 18am Prothrombin Time 15.4 seconds H 11.9-14.5 09/26/2017 3:25pm 09/26/2017 4 :01pm Prothromb Time International Ratio 1.32 09/26/2017 3:25pm 2017 4:01pm Oral Anticoagulant Therapy INR Values: 1. Low Intensity Therapy 1.5 - 2.0 2. Moderate Intensity Therapy 2.0 - 3.0 3. High Intensity Therapy(1) 2.5 - 3.5 4. High Intensity Therapy(2) 3.0 - 4.0 5. Panic Value INR > 5.0 Urine Color YELLOW YELLOW 09/28/2017 12:01pm 09/28/2017 12:32pm Urine Clarity HAZY CLEAR 09/28/2017 12:01pm 09/28/2017 12:32pm Urine Specific [place] 1.020 1.010-1.025 09/28/2017 12:01pm 2017 12:32pm Urine pH 5 5 - 7 09/28/2017 12:01pm 09/28/2017 12:32pm Urine Leukocyte Esterase 2+ H NEGATIVE 09/28/2017 12:01pm 09/28/2017 12:32pm Urine Nitrite NEGATIVE NEGATIVE 09/28/2017 12:01pm 09/28/2017 12: 32pm Urine Protein 2+ H NEGATIVE 09/28/2017 12:01pm 09/28/2017 12:32pm Urine Glucose (UA) NEGATIVE NEGATIVE 09/28/2017 12:01pm 09/28/2017 12 :32pm Urine Ketones NEGATIVE NEGATIVE 09/28/2017 12:01pm 09/28/2017 12: 32pm Urine Opiates Screen POSITIVE H NEGATIVE 09/26/2017 5:20pm 09/26/2017 6:27pm This test provides only a screen. Positive results should be repeated by a confirmatory test. Urine Barbiturates Screen NEGATIVE NEGATIVE 09/26/2017 5:20pm 2017 6:27pm Urine Phencyclidine Screen NEGATIVE NEGATIVE 09/26/2017 5:20pm 2017 6:27pm Urine Amphetamines Screen NEGATIVE NEGATIVE 09/26/2017 5:20pm 2017 6:27pm Urine Methamphetamines Screen NEGATIVE NEGATIVE 09/26/2017 5:20pm 08/2017 6:27pm Urine Benzodiazepines Screen POSITIVE H NEGATIVE 09/26/2017 5:20pm 08/2017 6:27pm This test provides only a screen. Positive results should be repeated by a confirmatory test. Urine Cocaine Screen NEGATIVE NEGATIVE 09/26/2017 5:20pm 09/26/2017 6 :27pm Urine Cannabinoids Screen NEGATIVE NEGATIVE 09/26/2017 5:20pm 2017 6:27pm THESE RESULTS ARE FOR MEDICAL TREATMENT ONLY *THIS REPORT CONTAINS UNCONFIRMED SCREENING RESULTS* POSITIVE RESULTS WILL BE CONFIRMED BY REFERENCE LAB UPON REQUEST CUT-OFF DRUG CLASS CONCENTRATION ng/mL Amphetamines 1000 Methamphetamines 1000 Cocaine 300 Opiate 300 Phencyclidine 25 Cannabinoid 50 Barbiturates 300 Benzodiazepine 300 Methadone 300 Urine Methadone Screen NEGATIVE NEGATIVE 09/26/2017 5:20pm 2017 6:27pm THESE RESULTS ARE FOR MEDICAL TREATMENT ONLY *THIS REPORT CONTAINS UNCONFIRMED SCREENING RESULTS* POSITIVE RESULTS WILL BE CONFIRMED BY REFERENCE LAB UPON REQUEST CUT-OFF DRUG CLASS CONCENTRATION ng/mL Amphetamines 1000 Methamphetamines 1000 Cocaine Metabolite 300 Opiate 300 Phencyclidine 25 Cannabinoid 50 Barbiturates 300 Benzodiazepine 300 Methadone 300 Urine Urobilinogen 0.2 mg/dL 0.2 - 1 09/28/2017 12:01pm 09/28/2017 12: 32pm Urine Bilirubin NEGATIVE NEGATIVE 09/28/2017 12:01pm 09/28/2017 12: 32pm Urine Blood TRACE H NEGATIVE 09/28/2017 12:01pm 09/28/2017 12:32pm Urine WBC 21-50 /HPF H 0-5 09/28/2017 12:01pm 09/28/2017 12:37pm Urine RBC 6-10 /HPF H 0-5 09/28/2017 12:01pm 09/28/2017 12:37pm Urine Bacteria MODERATE /HPF H NONE 09/28/2017 12:01pm 09/28/2017 12: 37pm Urine Epithelial Cells FEW /LPF NONE 09/28/2017 12:01pm 09/28/2017 12: 37pm Urine Amorphous Sediment FEW FEW 09/28/2017 12:01pm 09/28/2017 12: 37pm Urine Coarse Granular Casts 1-5 H 0 09/28/2017 12:01pm 09/28/2017 12: 37pm Sodium Level 140 mmol/L 136-145 09/29/2017 6:00am 09/29/2017 6:54am Potassium Level 3.4 mmol/L L 3.5-5.1 09/29/2017 6:00am 09/29/2017 6: 54am Chloride Level 103 mmol/L 98-107 09/29/2017 6:00am 09/29/2017 6:54am Carbon Dioxide Level 27 mmol/L 22-29 09/29/2017 6:00am 09/29/2017 6: 54am Anion Gap 13.4 mmol/L 8-16 09/29/2017 6:00am 09/29/2017 6:54am Blood Urea Nitrogen 20 mg/dL 7-26 09/29/2017 6:00am 09/29/2017 6:54am Creatinine 1.17 mg/dL H 0.57-1.11 09/29/2017 6:00am 09/29/2017 6:54am BUN/Creatinine Ratio 17 6-25 09/29/2017 6:00am 09/29/2017 6:54am Estimat Glomerular Filtration Rate 44 ML/MIN L 60- 09/29/2017 6:00am 11/2017 6:54am Ranges were taken from the National Kidney Disease Education Program and the National Kid[employer] Foundation literature. Reference ranges: 60 or greater: Normal 16-59 (for 3 consecutive months): Chronic kidney disease 15 or less: Kidney failure Glucose Level 103 mg/dL 74-118 09/29/2017 6:00am 09/29/2017 6:54am Calcium Level 7.9 mg/dL L 8.4-10.2 09/29/2017 6:00am 09/29/2017 6:54am Lactic Acid Level 20.7 MG/DL H 4.5-19.8 09/26/2017 UNK 09/26/2017 12: 37pm Total Bilirubin 0.6 mg/dL 0.2-1.2 09/28/2017 6:20am 09/28/2017 7:09am Aspartate Amino Transf (AST/SGOT) 18 IU/L 5-34 09/28/2017 6:20am 2017 7:09am Alanine Aminotransferase (ALT/SGPT) < 6 IU/L 0-55 09/28/2017 6:20am 10/2017 7:09am Total Protein 6.0 g/dL # L 6.5-8.1 09/28/2017 6:20am 09/28/2017 7:09am Albumin 2.5 g/dL L 3.5-5.0 09/28/2017 6:20am 09/28/2017 7:09am Globulin 3.5 g/dL 2.3-3.5 09/28/2017 6:20am 09/28/2017 7:09am Albumin/Globulin Ratio 0.7 L 0.8-2.0 09/28/2017 6:20am 09/28/2017 7: 09am Alkaline Phosphatase 65 IU/L 40-150 09/28/2017 6:20am 09/28/2017 7: 09am B-Type Natriuretic Peptide 693.9 pg/mL H 0-100 09/26/2017 11:50am 2017 12:41pm Creatine Kinase 189 IU/L H 29-168 09/26/2017 10:58am 09/26/2017 12:40pm Creatine Kinase MB 1.70 ng/mL 0-5.0 09/26/2017 10:58am 09/26/2017 12: 46pm Troponin I 0.076 ng/mL 0-0.300 09/26/2017 10:58am 09/26/2017 12:46pm Lipase 22 U/L 8-78 09/26/2017 12:00pm 09/26/2017 12:35pm Vancomycin Level Trough 27.7 ug/mL *H 5.0-10.0 10/01/2017 2:00am 2017 2:51am Results called to JAMIN RODAS RN at 0250 on 10/01/17 by Everton Carr. RB [place]. Microbiology Results Procedure Source Organism/Result Collection Date/Time Result Date/Time Result Status Blood Culture Blood STAPHYLOCOCCUS SP COAG NEG 08/13/2017 8:20pm 2017 8:46am Final Blood Culture Blood NO GROWTH AFTER 5 DAYS, FINAL REPORT 09/26/2017 11: 53am 10/01/2017 7:12pm Final Urine Culture Urine,Catheterized PROTEUS MIRABILIS-ESBL 09/28/2017 12:01pm 10/01/2017 8:08am Final Procedures Procedure Status Date Provider(s) TRANSFUSE NONAUT FRESH PLASMA IN PERIPH ART, OPEN Completed 08/14/17 JUANA RIVERO MD TRANSFUSE NONAUT RED BLOOD CELLS IN PERIPH ART, OPEN Completed 08/14/17 JUANA RIVERO MD TRANSFUSE OF NONAUT PLATELETS INTO PERIPH ART, OPEN APPROACH Completed JUANA RIVERO MD TRANSFUSE NONAUT FROZEN PLASMA IN PERIPH ART, OPEN Completed 08/14/17 JUANA RIVERO MD OCCLUSION OF SIGMOID COLON WITH INTRALUMINAL DEVICE, ENDO Completed 08/14/17 JUANA RIVERO MD EXCISION OF STOMACH, PYLORUS, ENDO, DIAGN Completed 08/14/17 JUANA RIVERO MD EXCISION OF STOMACH, ENDO, DIAGN Completed 08/14/17 JUANA RIVERO MD EXCISION OF SIGMOID COLON, ENDO, DIAGN Completed 08/14/17 JUANA RIVERO MD INSERTION OF INFUSION DEV INTO SUP VENA CAVA, PERC APPROACH Completed SHASHANK JIMENEZ MD Computed tomography of brain without radiopaque contrast Active 01/01/17 KYUNG BUTLER MD Computed tomography of cervical spine without contrast Active 01/01/[address] maxillofacial area wo contrast Active 08/13/17 SHORTTRACY PROPERTY 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 09/26/17 5:34pm 10/03/17 12:30pm SAURABH RIVERO MD Discharged Inpatient [facility] 08/13/17 4:38am 08/18/17 9:34pm SAURABH RIVERO MD Departed Emergency Room [facility] 01/01/17 12:29pm 01/01 7:13pm KYUNG BUTLER MD
[2017-10-08 10:01] VITALS: BP 118/77
[2017-10-08 12:09] VITALS: BP 100/73
--- NOTE | 2017-10-21 10:30 | Diagnostic Imaging Report ---
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 Bojorquez Pre-operative diagnosis: Poor intravenous access, need for intravenous antibiotics Post-operative diagnosis: Need for intravenous antibiotics Conscious Sedation: None The patient's heart rate and pulse oximetry were continuously monitored by the interventional radiology nurse. Blood pressure was monitored at 5 minute intervals. Additional Medications: Lidocaine 1% for local anesthesia Fluoroscopy time: 1.0 minutes Dose-area Product: 131.2 cGycm2. Contrast used: None Estimated blood loss: Less than 5 cc Specimens: None Implants: 7 Mongolian, 16 cm triple-lumen central venous catheter Blood products administered: None Condition at completion of procedure: Stable Disposition: [facility]ed to [facility] DISCUSSION: Informed consent was obtained from the patient's next of kin and documented in the medical record after discussion of risks and benefits. The patient was placed in the supine position on the angiographic table. Preliminary sonographic evaluation confirmed patency of the right internal jugular vein, evidenced by compressibility. The right neck was then prepped and draped in the standard sterile fashion. 1% lidocaine was infiltrated into the skin and subcutaneous tissues for local anesthesia. Then under continuous sonographic guidance, a 21-gauge micropuncture needle was used to access the right internal jugular vein. A 0.0 1 8-in. wire was then advanced centrally under fluoroscopic guidance. The needle was exchanged for a 5 Mongolian micropuncture sheath and the wire was upsized to a 0.0 3 5-in. J-wire which was advanced into the inferior vena cava under fluoroscopic guidance. The micropuncture sheath was removed and the tract was dilated. Then, a 7 Mongolian 16 cm triple-lumen central venous catheter was advanced over the wire to full depth. The wire was removed and the catheter tip was positioned at the superior cavoatrial junction. Each lumen was tested and showed adequate bidirectional flow. The catheter lumens were flushed with sterile saline, the catheter was secured to the skin with monofilament nylon suture, and a sterile dressing was applied. The patient tolerated the procedure well without immediate complication. FINDINGS: Patent right internal jugular vein. IMPRESSION: Successful placement of a 7 Mongolian, 16 cm triple-lumen central venous catheter by a right internal jugular approach under sonographic and fluoroscopic guidance. Signed by: Dr. Dimas Bojorquez M.D. on 10/08/2017 11:32 AM
== END | disposition home or self-care (01) ==
LOC: CATH LAB 09:43 → EDSTATUS 10:00
PROVIDERS: ATTEND Radiology Diagnostic Radiology
DX: Z45.2 Encounter for adjustment and management of vascular access device (principal); N39.0 Urinary tract infection, site not specified; F03.90 Unspecified dementia, unspecified severity, without behavioral disturbance, psychotic disturbance, mood disturbance, and anxiety
CPT/HCPCS: 36556; 77001; C1751; J7040

== ENCOUNTER 2017-10-16 15:07 | Emergency (ER) | payer MEDICARE ==
[~2017-10-16] VITALS: Ht 154.9 cm; Wt 101.2 kg
[~2017-10-16 15:07] MED LIST changes: -SODIUM CHLORIDE 0.9% 500ML 500 ML ONE
--- NOTE | 2017-10-16 17:31 | Diagnostic Imaging Report ---
Exams: Head and cervical spine CTs without IV contrast History: Trauma, fall Comparison studies: Multiple prior head CTs which date to 04/27/2016, most recent head CT of 09/26/2017, cervical spine CT of 01/01/2015. Technique: Axial images were obtained from the brain and cervical spine. Coronal and sagittal images reconstructed from the axial data. Intravenous contrast: None Findings: Head CT: Scalp: Left frontal scalp hematoma without underlying fracture.. Bones: No fractures, blastic or lytic lesions. Extra-axial spaces: No masses. No fluid collections. Brain sulci: Mildly prominent. Ventricles: Mild compensatory dilatation. No hydrocephalus. Parenchyma: No masses, acute hemorrhage or acute cortical vascular insults. Confluent hypodensities throughout the supratentorial white matter are nonspecific but most compatible with chronic small vessel ischemic changes. Sellar/suprasellar region: No abnormalities. Craniocervical junction: The foramen magnum is patent. No Chiari one malformation. 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 Cervical spine CT: Soft tissues: Left periorbital-supraorbital soft tissue hematoma. Incidental 2 mm dystrophic calcification in the right prenasal soft tissues along the right nasal ala. Bones: No fractures or bony abnormalities. There are to dental implants at the midline mandible. Orbits: No acute abnormalities. Left lens replacement related to previous cataract surgery. Paranasal sinuses: Scattered nonspecific inflammatory mucosal thickening throughout the ethmoids, right frontal sinus and sphenoid sinuses with nonspecific secretions in the sphenoid sinuses which could be correlated for acute on chronic sinusitis. Chronic reactive osteitis along the garcia of the sphenoid sinuses as sequela chronic inflammation. Fractures: None. Soft tissues: No gross acute abnormalities. Atlantoaxial articulation: Intact. Alignment: Straightened curvature may be positional. No subluxations. Cervicomedullary junction: No abnormalities. The foramen magnum is patent. Vertebrae: No infection or neoplasm. Degenerative changes: Moderate degenerative changes at the C1-C2 articulation with enthesophyte formation and retrodental ligamentous ossification. Mildly degenerated cervical disks. Mild canal stenosis at C5-C6 and C6-C7 due to disc osteophyte complexes. Multilevel foraminal stenosis due to uncovertebral and facet arthrosis (moderate right at C2-C3, severe left and mild right at C3-C4, severe right and mild/moderate left C4-C5, moderate bilaterally at C5-C6 and at C6-C7 and mild bilaterally at C7-T1). Incidental findings: Scattered cervical atherosclerosis with calcified plaque in the carotid bulb/carotid siphons. Anatomical variant retropharyngeal course of the carotid arteries. Multiple surgical clips within the neck. Partially imaged left-sided AICD and right-sided central venous catheter. IMPRESSION: Head CT: 1. Left frontal-supraorbital soft tissue hematoma without underlying fracture. 2. No acute intracranial abnormalities. 3. No other changes from the previous head CT of 09/26/2017. 4. Mild generalized volume loss with moderate chronic microvascular ischemic changes. Maxillofacial CT: 1. Left supraorbital soft tissue hematoma. 2. No maxillofacial fracture. 3. Inflammatory changes in the paranasal sinuses which could be correlated for acute on chronic sinusitis. Cervical spine CT: 1. No cervical spine fracture or subluxation. 2. Multilevel degenerative changes as described. 3. Cannot adequate evaluate ligament, spinal cord and or vascular abnormalities on the basis of this examination. Signed by: Dr. Dimas Lester M.D. on 10/16/2017 5:28 PM
[2017-10-16 17:52] LABS: BASOPHILS % 0.5 % (0.0-1.0); EOSINOPHILS # (AUTO) 0.6 (0.0-0.4); EOSINOPHILS % 7.5 % (0.0-6.0); HEMATOCRIT 28.3 % (34.2-44.1); HEMOGLOBIN 8.7 g/dL (12.0-16.0); LYMPHOCYTES # (AUTO) 0.9 (1.0-3.2); LYMPHOCYTES % 10.1 % (18.0-39.1); MEAN CORPUSCULAR HEMOGLOBIN 28.1 pg (28-32); MEAN CORPUSCULAR HGB CONC 30.7 g/dL (31-35); MEAN CORPUSCULAR VOLUME 91.3 fL (81-99); MONOCYTES # (AUTO) 0.7 (0.2-0.8); MONOCYTES % 7.7 % (4.4-11.3); NEUTROPHILS # (AUTO) 6.2 (2.1-6.9); NEUTROPHILS % 72.4 % (38.7-80.0); PLATELET COUNT 131 x10e3/uL (140-360); RED CELL DISTRIBUTION WIDTH 17.6 % (11.7-14.4)
[2017-10-16] MEDS ORDERED: BACITRACIN/POLYMYXIN 30 GM OINT TP ONE (18:00)
[2017-10-16 19:00] LABS: ALANINE AMINOTRANSFERASE < 6 IU/L (0-55); ALBUMIN 2.7 g/dL (3.5-5.0); ALBUMIN/GLOBULIN RATIO 0.7 (0.8-2.0); ALKALINE PHOSPHATASE 83 IU/L (40-150); ANION GAP 14.5 mmol/L (8-16); BLOOD UREA NITROGEN 33 mg/dL (7-26); BUN/CREATININE RATIO 20 (6-25); CALCIUM 8.4 mg/dL (8.4-10.2); CARBON DIOXIDE 31 mmol/L (22-29); CHLORIDE 100 mmol/L (98-107); CREATININE, SERUM 1.67 mg/dL (0.57-1.11); EST GLOMERULAR FILTRATION RATE 29 ML/MIN (60-); GLUCOSE 103 mg/dL (74-118); POTASSIUM 4.5 mmol/L (3.5-5.1); SODIUM 141 mmol/L (136-145)
[2017-10-16] MEDS ORDERED: TRAMADOL HCL 50 MG TAB PO ONE (19:45)
[2017-10-16 20:55] VITALS: BP 129/88
== END 2017-10-16 21:15 | disposition home or self-care (01) ==
LOC: ER 15:07
DX: S02.2XXA Fracture of nasal bones, initial encounter for closed fracture (principal); S00.83XA Contusion of other part of head, initial encounter; S00.81XA Abrasion of other part of head, initial encounter; W05.0XXA Fall from non-moving wheelchair, initial encounter; Y92.128 Other place in nursing home as the place of occurrence of the external cause; G20 Parkinson's disease; F03.90 Unspecified dementia, unspecified severity, without behavioral disturbance, psychotic disturbance, mood disturbance, and anxiety; I10 Essential (primary) hypertension; I50.9 Heart failure, unspecified; I48.91 Unspecified atrial fibrillation; K21.9 Gastro-esophageal reflux disease without esophagitis; F41.9 Anxiety disorder, unspecified; F32.9 Major depressive disorder, single episode, unspecified
CPT/HCPCS: 36415; 70450; 70486; 72125; 80053; 85025; 93005; 99284